=== PATIENT | female | born 1955 | race Caucasian/White ===

== ENCOUNTER → 2017-07-14 08:02 | Outpatient (CLI) | payer OTHER, SELFPAY ==
[2017-07-14 16:29] LABS: Basophil# 0.02 X10^3/uL; Basophil% 0.2 % (0-1); Eosinophil# 0.24 X10^3/uL; Eosinophils% 2.6 % (0-5); Hematocrit 38.7 % (37-47); Hemoglobin 12.5 g/dl (12.0-15.0); Mean Corp Hgb Conc 32.3 g/gl (32-36); Mean Corpuscular Hgb 30.7 pg (27.0-32.0); Mean Corpuscular Volume 95.1 fL (81-99); Mean Platelet Vol. 10.6 fl (6.2-12.0); Monocyte# 0.78 X10^3/uL; Monocyte% 8.6 % (0-10); Neutrophil # 6.03 X10^3/uL (2.7-7.7); Neutrophil % 66.4 % (47-70); POSITIVE COUNT NO; POSITIVE DIFFERENTIAL NO; POSITIVE MORPHOLOGY NO; Platelet Count 271 K/mm3 (150-450); RBC Distribution Width CV 13.1 % (11.6-14.6); RBC Distribution Width SD 44.8 fl (35.1-43.9); Red Blood Count 4.07 M/mm3 (4.2-5.4); White Blood Count 9.1 K/mm3 (4.4-11.0)
[2017-07-14 17:05] LABS: ALB/GLOB Ratio 0.9 RATIO (0.9-2.4); AST(SGOT) 30 U/L (15-37); Alanine Aminotransfer ALT/SGPT 50 U/L (13-56); Albumin, Serum 3.6 g/dL (3.2-5.0); Alkaline Phosphatase 140 U/L (45-117); Anion Gap 9 (5-15); BUN 23 mg/dL (7-18); BUN/Creat Ratio 26.9 RATIO (10-20); Calcium,Total 8.6 mg/dL (8.5-10.1); Chloride 101 mmol/L (98-107); Creatinine, Serum 0.86 mg/dL (0.55-1.02); EST Glomerular Filtration Rate 72 mL/min (>60); Est Glom Filt Rate - Afr Amer 87 mL/min (>60); Globulin 3.9 g/dL (2.2-4.2); Glucose 244 mg/dL (74-106); Protein, Total 7.5 g/dL (6.4-8.2); Sodium Level 138 mmol/L (136-145)
== END ==
PROVIDERS: Family Provider Family Medicine; PCP Family Medicine; Visit Provider Internal Medicine Rheumatology
DX: L40.59 Other psoriatic arthropathy (principal); Z79.899 Other long term (current) drug therapy; L40.8 Other psoriasis; K76.0 Fatty (change of) liver, not elsewhere classified; K21.9 Gastro-esophageal reflux disease without esophagitis
CPT/HCPCS: 36415; 80053; 85025

== ENCOUNTER → 2017-08-01 07:31 | Outpatient (CLI) | payer OTHER, SELFPAY ==
[2017-08-01 11:02] LABS: AST(SGOT) 36 U/L (15-37); Alanine Aminotransfer ALT/SGPT 50 U/L (13-56); Albumin, Serum 3.8 g/dL (3.2-5.0); Alkaline Phosphatase 127 U/L (45-117); Bilirubin, Direct 0.06 mg/dL (0.00-0.30); Cholesterol 155 mg/dL (200); Globulin 3.6 g/dL (2.2-4.2); High Density Lipoprotein 34 mg/dL; Protein, Total 7.4 g/dL (6.4-8.2); Triglycerides 545 mg/dL
== END ==
PROVIDERS: Family Provider Family Medicine; PCP Family Medicine; Visit Provider Nurse Practitioner Family
DX: E78.5 Hyperlipidemia, unspecified (principal); E78.1 Pure hyperglyceridemia; R00.0 Tachycardia, unspecified; E66.9 Obesity, unspecified; Z79.899 Other long term (current) drug therapy
CPT/HCPCS: 36415; 80061; 80076

== ENCOUNTER → 2017-10-01 15:00 | Outpatient (CLI) | payer OTHER, SELFPAY | PROVIDERS: Visit Provider Physician Assistant | DX: J02.9 Acute pharyngitis, unspecified (principal) | CPT/HCPCS: 87081 ==

== ENCOUNTER → 2017-10-11 07:25 | Outpatient (CLI) | payer OTHER, SELFPAY ==
[2017-10-11 09:59] LABS: Absolute Lymphocyte Count 1.52 X10^3/ul (0.83-4.51); Absolute Neutrophil Count 4.6 X10^3/uL (2.0-7.7); Basophil# 0.03 X10^3/uL; Basophil% 0.4 % (0-1); Eosinophil# 0.17 X10^3/uL; Eosinophils% 2.5 % (0-5); Hematocrit 39.4 % (37-47); Hemoglobin 12.7 g/dl (12.0-15.0); Lymphocyte # 1.52 X10^3/ul (4.0); Lymphocyte % 22.3 % (19-41); Mean Corp Hgb Conc 32.2 g/gl (32-36); Mean Corpuscular Hgb 30.2 pg (27.0-32.0); Mean Corpuscular Volume 93.8 fL (81-99); Mean Platelet Vol. 10.4 fl (6.2-12.0); Monocyte# 0.49 X10^3/uL; Monocyte% 7.2 % (0-10); Neutrophil % 67.5 % (47-70); Platelet Count 222 K/mm3 (150-450); RBC Distribution Width CV 13.8 % (11.6-14.6); RBC Distribution Width SD 46.5 fl (35.1-43.9); White Blood Count 6.8 K/mm3 (4.4-11.0)
[2017-10-11 10:11] LABS: POSITIVE COUNT NO; POSITIVE DIFFERENTIAL NO; POSITIVE MORPHOLOGY NO
[2017-10-11 10:27] LABS: ALB/GLOB Ratio 1.1 RATIO (0.9-2.4); AST(SGOT) 52 U/L (15-37); Alanine Aminotransfer ALT/SGPT 69 U/L (13-56); Albumin, Serum 3.8 g/dL (3.2-5.0); Alkaline Phosphatase 122 U/L (45-117); Anion Gap 6 (5-15); BUN 17 mg/dL (7-18); BUN/Creat Ratio 22.9 RATIO (10-20); Calcium,Total 9.2 mg/dL (8.5-10.1); Chloride 102 mmol/L (98-107); Creatinine, Serum 0.74 mg/dL (0.55-1.02); EST Glomerular Filtration Rate 85 mL/min (>60); Est Glom Filt Rate - Afr Amer 103 mL/min (>60); Globulin 3.6 g/dL (2.2-4.2); Glucose 138 mg/dL (74-106); Potassium 4.6 mmol/L (3.5-5.1); Protein, Total 7.4 g/dL (6.4-8.2); Sodium Level 139 mmol/L (136-145)
== END ==
PROVIDERS: Family Provider Family Medicine; PCP Family Medicine; Visit Provider Internal Medicine Rheumatology
DX: L40.59 Other psoriatic arthropathy (principal); K76.0 Fatty (change of) liver, not elsewhere classified; E11.9 Type 2 diabetes mellitus without complications; M21.40 Flat foot [pes planus] (acquired), unspecified foot; E78.5 Hyperlipidemia, unspecified; K21.9 Gastro-esophageal reflux disease without esophagitis; F32.89 Other specified depressive episodes; Z79.899 Other long term (current) drug therapy
CPT/HCPCS: 36415; 80053; 85025

== ENCOUNTER → 2017-11-02 09:42 | Outpatient (CLI) | payer OTHER, SELFPAY ==
[2017-11-02 12:27] LABS: ALB/GLOB Ratio 1.1 RATIO (0.9-2.4); AST(SGOT) 51 U/L (15-37); Alanine Aminotransfer ALT/SGPT 78 U/L (13-56); Albumin, Serum 3.8 g/dL (3.2-5.0); Alkaline Phosphatase 115 U/L (45-117); Anion Gap 12 (5-15); BUN 21 mg/dL (7-18); BUN/Creat Ratio 29.5 RATIO (10-20); Calcium,Total 8.9 mg/dL (8.5-10.1); Chloride 101 mmol/L (98-107); Creatinine, Serum 0.71 mg/dL (0.55-1.02); EST Glomerular Filtration Rate 89 mL/min (>60); Est Glom Filt Rate - Afr Amer 108 mL/min (>60); Globulin 3.6 g/dL (2.2-4.2); Glucose 177 mg/dL (74-106); Protein, Total 7.4 g/dL (6.4-8.2); Sodium Level 139 mmol/L (136-145)
== END ==
PROVIDERS: Family Provider Family Medicine; PCP Family Medicine; Visit Provider Internal Medicine Rheumatology
DX: L40.59 Other psoriatic arthropathy (principal); L40.8 Other psoriasis; K76.0 Fatty (change of) liver, not elsewhere classified; K21.9 Gastro-esophageal reflux disease without esophagitis; M21.40 Flat foot [pes planus] (acquired), unspecified foot; E11.9 Type 2 diabetes mellitus without complications; F32.89 Other specified depressive episodes; E78.5 Hyperlipidemia, unspecified; Z79.899 Other long term (current) drug therapy
CPT/HCPCS: 36415; 80053

== ENCOUNTER → 2017-11-27 07:38 | Outpatient (CLI) | payer OTHER, SELFPAY ==
[2017-11-27 09:57] LABS: Absolute Lymphocyte Count 1.49 X10^3/ul (0.83-4.51); Absolute Neutrophil Count 4.5 X10^3/uL (2.0-7.7); Basophil# 0.02 X10^3/uL; Basophil% 0.3 % (0-1); Hematocrit 38.8 % (37-47); Hemoglobin 13.4 g/dl (12.0-15.0); Lymphocyte # 1.49 X10^3/ul (4.0); Lymphocyte % 22.6 % (19-41); Mean Corp Hgb Conc 34.5 g/gl (32-36); Mean Corpuscular Hgb 32.4 pg (27.0-32.0); Mean Corpuscular Volume 93.9 fL (81-99); Mean Platelet Vol. 11.2 fl (6.2-12.0); Monocyte# 0.39 X10^3/uL; Monocyte% 5.9 % (0-10); Neutrophil # 4.47 X10^3/uL (2.7-7.7); POSITIVE COUNT NO; POSITIVE DIFFERENTIAL NO; POSITIVE MORPHOLOGY NO; Platelet Count 188 K/mm3 (150-450); RBC Distribution Width CV 13.4 % (11.6-14.6); RBC Distribution Width SD 45.6 fl (35.1-43.9); Red Blood Count 4.13 M/mm3 (4.2-5.4); White Blood Count 6.6 K/mm3 (4.4-11.0)
[2017-11-27 11:17] LABS: Albumin, Serum 3.6 g/dL (3.2-5.0); Alkaline Phosphatase 111 U/L (45-117); Anion Gap 24 (5-15); BUN 13 mg/dL (7-18); BUN/Creat Ratio 17.5 RATIO (10-20); Bilirubin, Direct < 0.05 mg/dL (0.00-0.30); Calcium,Total 8.1 mg/dL (8.5-10.1); Chloride 97 mmol/L (98-107); Creatinine, Serum 0.74 mg/dL (0.55-1.02); EST Glomerular Filtration Rate 84 mL/min (>60); Est Glom Filt Rate - Afr Amer 102 mL/min (>60); Globulin 3.6 g/dL (2.2-4.2); Glucose 242 mg/dL (74-106); Potassium 3.9 mmol/L (3.5-5.1); Protein, Total 7.2 g/dL (6.4-8.2); Sodium Level 135 mmol/L (136-145)
[2017-11-27 11:31] LABS: AST(SGOT) 76 U/L (15-37); Alanine Aminotransfer ALT/SGPT 63 U/L (13-56)
== END ==
PROVIDERS: Family Provider Family Medicine; PCP Family Medicine; Visit Provider Internal Medicine Cardiovascular Disease
DX: L40.59 Other psoriatic arthropathy (principal); K76.0 Fatty (change of) liver, not elsewhere classified; M21.40 Flat foot [pes planus] (acquired), unspecified foot; E11.9 Type 2 diabetes mellitus without complications; E78.5 Hyperlipidemia, unspecified; K21.9 Gastro-esophageal reflux disease without esophagitis; F32.89 Other specified depressive episodes; Z79.899 Other long term (current) drug therapy
CPT/HCPCS: 80048; 80076; 85025

== ENCOUNTER → 2017-12-23 08:47 | Outpatient (CLI) | payer OTHER, SELFPAY ==
[2017-12-23 09:38] LABS: Absolute Lymphocyte Count 1.79 X10^3/ul (0.83-4.51); Basophil# 0.04 X10^3/uL; Basophil% 0.5 % (0-1); Eosinophil# 0.14 X10^3/uL; Eosinophils% 1.9 % (0-5); Hematocrit 41.7 % (37-47); Hemoglobin 13.4 g/dl (12.0-15.0); Lymphocyte # 1.79 X10^3/ul (4.0); Lymphocyte % 24.4 % (19-41); Mean Corp Hgb Conc 32.1 g/gl (32-36); Mean Corpuscular Hgb 30.2 pg (27.0-32.0); Mean Corpuscular Volume 94.1 fL (81-99); Mean Platelet Vol. 11.9 fl (6.2-12.0); Monocyte# 0.39 X10^3/uL; Monocyte% 5.3 % (0-10); Neutrophil # 4.98 X10^3/uL (2.7-7.7); Neutrophil % 67.8 % (47-70); Platelet Count 182 K/mm3 (150-450); RBC Distribution Width SD 44.7 fl (35.1-43.9); Red Blood Count 4.43 M/mm3 (4.2-5.4); White Blood Count 7.4 K/mm3 (4.4-11.0)
[2017-12-23 09:43] LABS: POSITIVE COUNT NO; POSITIVE DIFFERENTIAL NO; POSITIVE MORPHOLOGY NO
[2017-12-23 10:12] LABS: ALB/GLOB Ratio 0.9 RATIO (0.9-2.4); AST(SGOT) 68 U/L (15-37); Alanine Aminotransfer ALT/SGPT 73 U/L (13-56); Albumin, Serum 3.6 g/dL (3.2-5.0); Alkaline Phosphatase 120 U/L (45-117); Anion Gap 11 (5-15); BUN 19 mg/dL (7-18); BUN/Creat Ratio 24.4 RATIO (10-20); Calcium,Total 8.7 mg/dL (8.5-10.1); Chloride 100 mmol/L (98-107); Creatinine, Serum 0.78 mg/dL (0.55-1.02); EST Glomerular Filtration Rate 80 mL/min (>60); Est Glom Filt Rate - Afr Amer 97 mL/min (>60); Glucose 210 mg/dL (74-106); Potassium 4.5 mmol/L (3.5-5.1); Protein, Total 7.6 g/dL (6.4-8.2); Sodium Level 138 mmol/L (136-145)
== END ==
PROVIDERS: Family Provider Family Medicine; PCP Family Medicine; Visit Provider Internal Medicine Rheumatology
DX: L40.59 Other psoriatic arthropathy (principal); K76.0 Fatty (change of) liver, not elsewhere classified; M21.40 Flat foot [pes planus] (acquired), unspecified foot; E11.9 Type 2 diabetes mellitus without complications; E78.5 Hyperlipidemia, unspecified; K21.9 Gastro-esophageal reflux disease without esophagitis; F32.89 Other specified depressive episodes; Z79.899 Other long term (current) drug therapy
CPT/HCPCS: 36415; 80053; 85025

== ENCOUNTER → 2018-01-05 07:34 | Outpatient (CLI) | payer OTHER, SELFPAY ==
--- NOTE | 2018-01-05 06:58 | BI_ITS ---
MAMMOGRAPHY - BILATERAL SCREENING REASON FOR EXAM: Female, 62 years old. Routine annual screening examination. PERTINENT HISTORY: Non-contributory. TECHNIQUE: Digital bilateral breast lizzy (3D mammographic acquisition) in the CC and MLO projections. 2-D mediolateral oblique (MLO) and craniocaudad (CC) views of both breasts were obtained. CAD: Full Field Digital Mammography with Computer Added Detection was performed. COMPARISON: Comparison is made with prior examination dated December 28, 2016 and October 05, 2015. FINDINGS: Breast Composition: There are scattered areas of fibroglandular density. There are no dominant masses or suspicious calcifications. A tissue clip marker is once again seen in the deep mid slightly lateral aspect of the right breast stable appearance of the benign bilateral axillary lymph nodes. No other significant abnormalities are identified. There has been no significant change since the prior study. BI/SCREENING MAMM (CAD), BILAT IMPRESSION: Stable bilateral screening mammogram. Yearly follow-up mammogram recommended. (A) ASSESSMENT CATEGORY: BIRADS Category 1: Negative. A letter regarding these results will be sent to the patient by the facility within 30 days. Approximately 10% of breast cancers are not detected by mammography. A normal mammogram should not delay biopsy of a clinically suspicious abnormality. [id number] Electronically Signed: Pawan Leong MD at 8:32 EDT Tel [phone], Service support ,
== END ==
PROVIDERS: Family Provider Family Medicine; PCP Family Medicine; Visit Provider Family Medicine
DX: Z12.31 Encounter for screening mammogram for malignant neoplasm of breast (principal)
CPT/HCPCS: 77063; 77067

== ENCOUNTER 2018-01-15 15:41 | Outpatient (RCR) | payer OTHER, SELFPAY | END 2018-02-02 23:59 | LOC: NS 15:41 | PROVIDERS: Family Provider Family Medicine; PCP Family Medicine; Visit Provider Family Medicine | DX: E66.9 Obesity, unspecified (principal); Z68.33 Body mass index [BMI] 33.0-33.9, adult; Z71.3 Dietary counseling and surveillance | CPT/HCPCS: 97802 ==

== ENCOUNTER → 2018-01-23 07:59 | Outpatient (CLI) | payer OTHER, SELFPAY ==
[2018-01-23 10:27] LABS: AST(SGOT) 55 U/L (15-37); Alanine Aminotransfer ALT/SGPT 71 U/L (13-56); Albumin, Serum 3.8 g/dL (3.2-5.0); Alkaline Phosphatase 117 U/L (45-117); Anion Gap 5 (5-15); BUN 17 mg/dL (7-18); BUN/Creat Ratio 22.9 RATIO (10-20); Calcium,Total 8.6 mg/dL (8.5-10.1); Chloride 105 mmol/L (98-107); Creatinine, Serum 0.74 mg/dL (0.55-1.02); EST Glomerular Filtration Rate 85 mL/min (>60); Est Glom Filt Rate - Afr Amer 103 mL/min (>60); Globulin 3.7 g/dL (2.2-4.2); Glucose 156 mg/dL (74-106); Potassium 4.2 mmol/L (3.5-5.1); Protein, Total 7.5 g/dL (6.4-8.2); Sodium Level 140 mmol/L (136-145)
== END ==
PROVIDERS: Internal Medicine Cardiovascular Disease; Family Provider Family Medicine; PCP Family Medicine; Visit Provider Internal Medicine Rheumatology
DX: L40.59 Other psoriatic arthropathy (principal); Z79.899 Other long term (current) drug therapy
CPT/HCPCS: 36415; 80053; 82248

== ENCOUNTER → 2018-01-30 08:05 | Outpatient (CLI) | payer OTHER, SELFPAY | PROVIDERS: Family Provider Family Medicine; PCP Family Medicine; Visit Provider Internal Medicine Rheumatology | DX: L40.59 Other psoriatic arthropathy (principal); K76.0 Fatty (change of) liver, not elsewhere classified; M21.40 Flat foot [pes planus] (acquired), unspecified foot; E11.9 Type 2 diabetes mellitus without complications; E78.5 Hyperlipidemia, unspecified; K21.9 Gastro-esophageal reflux disease without esophagitis; F32.89 Other specified depressive episodes; Z79.899 Other long term (current) drug therapy | CPT/HCPCS: 76705 ==

== ENCOUNTER → 2018-02-06 08:09 | Outpatient (CLI) | payer OTHER, SELFPAY ==
[2018-02-06 14:37] LABS: ALB/GLOB Ratio 1.1 RATIO (0.9-2.4); AST(SGOT) 61 U/L (15-37); Alanine Aminotransfer ALT/SGPT 77 U/L (13-56); Albumin, Serum 4.1 g/dL (3.2-5.0); Alkaline Phosphatase 129 U/L (45-117); Anion Gap 11 (5-15); BUN 15 mg/dL (7-18); BUN/Creat Ratio 18.1 RATIO (10-20); Calcium,Total 9.7 mg/dL (8.5-10.1); Chloride 100 mmol/L (98-107); Creatinine, Serum 0.83 mg/dL (0.55-1.02); EST Glomerular Filtration Rate 74 mL/min (>60); Est Glom Filt Rate - Afr Amer 90 mL/min (>60); Globulin 3.9 g/dL (2.2-4.2); Glucose 119 mg/dL (74-106); Potassium 4.3 mmol/L (3.5-5.1); Sodium Level 140 mmol/L (136-145)
[2018-02-12 03:06] LABS: QNTFERON TB Ag Minus Nil Value 0.01 IU/mL (.); QNTFERON TB Ag Value 0.02 IU/mL (.); QNTFERON TB Mitogen Value > 10.00 IU/mL (.); QNTFERON TB Nil Value 0.01 IU/mL (.)
[2018-02-14 11:12] LABS: QNTIFERON TB Gold Negative (Negative)
== END ==
PROVIDERS: Family Provider Family Medicine; PCP Family Medicine; Visit Provider Internal Medicine Rheumatology
DX: L40.59 Other psoriatic arthropathy (principal); K76.0 Fatty (change of) liver, not elsewhere classified; M21.40 Flat foot [pes planus] (acquired), unspecified foot; E11.9 Type 2 diabetes mellitus without complications; E78.5 Hyperlipidemia, unspecified; K21.9 Gastro-esophageal reflux disease without esophagitis; F32.89 Other specified depressive episodes; Z79.899 Other long term (current) drug therapy
CPT/HCPCS: 36415; 80053; 86480

== ENCOUNTER → 2018-02-09 08:09 | Outpatient (CLI) | payer OTHER, SELFPAY ==
[2018-02-16 03:07] LABS: QNTFERON TB Ag Minus Nil Value 0 IU/mL (.); QNTFERON TB Ag Value 0.05 IU/mL (.); QNTFERON TB Mitogen Value > 10.00 IU/mL (.); QNTFERON TB Nil Value 0.05 IU/mL (.)
[2018-02-16 08:58] LABS: QNTIFERON TB Gold Negative (Negative)
== END ==
PROVIDERS: Family Provider Family Medicine; PCP Family Medicine; Visit Provider Internal Medicine Rheumatology
DX: L40.59 Other psoriatic arthropathy (principal); K76.0 Fatty (change of) liver, not elsewhere classified; M21.40 Flat foot [pes planus] (acquired), unspecified foot; E11.9 Type 2 diabetes mellitus without complications; E78.5 Hyperlipidemia, unspecified; K21.9 Gastro-esophageal reflux disease without esophagitis; F32.89 Other specified depressive episodes; Z79.899 Other long term (current) drug therapy
CPT/HCPCS: 36415; 71046; 86480

== ENCOUNTER → 2018-02-17 10:08 | Outpatient (CLI) | payer OTHER, SELFPAY ==
[2018-02-17 11:43] LABS: Cholesterol 178 mg/dL (200); High Density Lipoprotein 42 mg/dL; Triglycerides 313 mg/dL; Very Low Density Lipoprotein 63 mg/dL (5-40)
== END ==
PROVIDERS: Family Provider Family Medicine; PCP Family Medicine; Visit Provider Internal Medicine Cardiovascular Disease
DX: E78.5 Hyperlipidemia, unspecified (principal); Z79.899 Other long term (current) drug therapy
CPT/HCPCS: 36415; 80061

== ENCOUNTER 2018-02-23 09:28 | Outpatient (RCR) | payer OTHER, SELFPAY | END 2018-03-04 23:59 | LOC: NS 09:28 | PROVIDERS: Family Provider Family Medicine; PCP Family Medicine; Visit Provider Family Medicine | DX: E66.9 Obesity, unspecified (principal); Z68.33 Body mass index [BMI] 33.0-33.9, adult; Z71.3 Dietary counseling and surveillance ==

== ENCOUNTER → 2018-02-23 23:36 | Outpatient (CLI) | payer OTHER, SELFPAY | PROVIDERS: Family Provider Family Medicine; PCP Family Medicine; Visit Provider Clinical Nurse Specialist Acute Care | DX: G47.10 Hypersomnia, unspecified (principal) | CPT/HCPCS: 95810 ==

== ENCOUNTER → 2018-03-27 21:22 | Outpatient (CLI) | payer OTHER, SELFPAY | PROVIDERS: Family Provider Family Medicine; PCP Family Medicine; Visit Provider Clinical Nurse Specialist Acute Care | DX: G47.33 Obstructive sleep apnea (adult) (pediatric) (principal) | CPT/HCPCS: 95811 ==

== ENCOUNTER 2018-05-03 08:00 | Outpatient (RCR) | payer OTHER, SELFPAY | END 2018-05-04 23:59 | LOC: NS 08:00 | PROVIDERS: Family Provider Family Medicine; PCP Family Medicine; Visit Provider Family Medicine | DX: E66.9 Obesity, unspecified (principal); E11.9 Type 2 diabetes mellitus without complications; Z68.33 Body mass index [BMI] 33.0-33.9, adult; Z71.3 Dietary counseling and surveillance | CPT/HCPCS: 97803 ==

== ENCOUNTER 2018-05-24 09:00 | Outpatient (RCR) | payer OTHER, SELFPAY ==
[2018-03-29 08:55] VITALS: BMI 34.2
== END 2018-06-04 23:59 ==
LOC: NS 09:00
PROVIDERS: Family Provider Family Medicine; PCP Family Medicine; Visit Provider Family Medicine
DX: E66.9 Obesity, unspecified (principal); E11.9 Type 2 diabetes mellitus without complications; Z68.33 Body mass index [BMI] 33.0-33.9, adult; Z71.3 Dietary counseling and surveillance
CPT/HCPCS: 97803

== ENCOUNTER → 2018-06-07 09:25 | Outpatient (CLI) | payer OTHER, SELFPAY ==
[2018-03-29 08:55] VITALS: BMI 34.2
[2018-06-07 12:16] LABS: Absolute Lymphocyte Count 1.51 X10^3/ul (0.83-4.51); Absolute Neutrophil Count 2.8 X10^3/uL (2.0-7.7); Basophil# 0.04 X10^3/uL; Basophil% 0.8 % (0-1); Eosinophil# 0.09 X10^3/uL; Eosinophils% 1.9 % (0-5); Hematocrit 42.4 % (37-47); Hemoglobin 13.7 g/dl (12.0-15.0); Lymphocyte # 1.51 X10^3/ul (4.0); Lymphocyte % 31.4 % (19-41); Mean Corp Hgb Conc 32.3 g/gl (32-36); Mean Corpuscular Hgb 29.8 pg (27.0-32.0); Mean Corpuscular Volume 92.2 fL (81-99); Monocyte% 8.3 % (0-10); Neutrophil # 2.76 X10^3/uL (2.7-7.7); Neutrophil % 57.4 % (47-70); Platelet Count 182 K/mm3 (150-450); RBC Distribution Width CV 12.7 % (11.6-14.6); RBC Distribution Width SD 42.3 fl (35.1-43.9); White Blood Count 4.8 K/mm3 (4.4-11.0)
[2018-06-07 12:22] LABS: ALB/GLOB Ratio 1.1 RATIO (0.9-2.4); AST(SGOT) 68 U/L (15-37); Alanine Aminotransfer ALT/SGPT 150 U/L (13-56); Albumin, Serum 3.8 g/dL (3.2-5.0); Alkaline Phosphatase 112 U/L (45-117); Anion Gap 9 (5-15); BUN 14 mg/dL (7-18); Calcium,Total 8.9 mg/dL (8.5-10.1); Chloride 103 mmol/L (98-107); Creatinine, Serum 0.74 mg/dL (0.55-1.02); EST Glomerular Filtration Rate 85 mL/min (>60); Est Glom Filt Rate - Afr Amer 103 mL/min (>60); Globulin 3.6 g/dL (2.2-4.2); Glucose 166 mg/dL (74-106); Potassium 3.9 mmol/L (3.5-5.1); Protein, Total 7.4 g/dL (6.4-8.2); Sodium Level 142 mmol/L (136-145)
[2018-06-07 12:23] LABS: POSITIVE COUNT NO; POSITIVE DIFFERENTIAL NO; POSITIVE MORPHOLOGY NO
== END ==
PROVIDERS: Family Provider Family Medicine; PCP Family Medicine; Referring Provider Internal Medicine Rheumatology; Visit Provider Internal Medicine Rheumatology
DX: L40.59 Other psoriatic arthropathy (principal); K76.0 Fatty (change of) liver, not elsewhere classified; M21.40 Flat foot [pes planus] (acquired), unspecified foot; E11.9 Type 2 diabetes mellitus without complications; E78.5 Hyperlipidemia, unspecified; K21.9 Gastro-esophageal reflux disease without esophagitis; F32.89 Other specified depressive episodes; Z79.899 Other long term (current) drug therapy
CPT/HCPCS: 36415; 80053; 85025

== ENCOUNTER 2018-07-02 10:07 | Outpatient (RCR) | payer OTHER, SELFPAY ==
[2018-03-29 08:55] VITALS: BMI 34.2
== END 2018-07-05 23:59 ==
LOC: NS 10:07
PROVIDERS: Family Provider Family Medicine; PCP Family Medicine; Visit Provider Family Medicine
DX: E66.9 Obesity, unspecified (principal); E11.9 Type 2 diabetes mellitus without complications; Z68.33 Body mass index [BMI] 33.0-33.9, adult; Z71.3 Dietary counseling and surveillance
CPT/HCPCS: 97803

== ENCOUNTER → 2018-07-02 12:07 | Outpatient (CLI) | payer OTHER, SELFPAY ==
[2018-03-29 08:55] VITALS: BMI 34.2
--- NOTE | 2018-07-02 12:11 | RAD_ITS ---
STUDY: X-RAY CHEST REASON FOR EXAM: Female, 63 years old. Cough TECHNIQUE: Frontal and lateral views of the chest. COMPARISON: 02/09/2018 FINDINGS: The lungs are clear and expanded. There is no demonstrated pleural abnormality. Normal size heart. Normal mediastinum and krysten. Normal visualized pulmonary arteries. Normal visualized aortic arch and descending thoracic aorta. Normal visualized thoracic spine. Normal visualized ribs, clavicles, and shoulders. There is no demonstrated abnormality of the visualized soft tissue structures of the upper abdomen. RAD/Chest PA and Lateral IMPRESSION: Normal x-ray examination of the chest. Electronically Signed: Jeferson Valadez MD at 13:10 EST Tel , Service support ,
== END ==
PROVIDERS: Family Provider Family Medicine; PCP Family Medicine; Referring Provider Family Medicine; Visit Provider Family Medicine
DX: R05 Cough (principal)
CPT/HCPCS: 71046

== ENCOUNTER 2018-07-30 10:00 | Outpatient (RCR) | payer OTHER, SELFPAY ==
[2018-03-29 08:55] VITALS: BMI 34.2
== END 2018-08-02 23:59 ==
LOC: NS 10:00
PROVIDERS: Family Provider Family Medicine; PCP Family Medicine; Visit Provider Family Medicine
DX: E66.9 Obesity, unspecified (principal); E11.9 Type 2 diabetes mellitus without complications; Z68.33 Body mass index [BMI] 33.0-33.9, adult; Z71.3 Dietary counseling and surveillance
CPT/HCPCS: 97803

== ENCOUNTER 2018-09-12 09:04 | Outpatient (RCR) | payer OTHER, SELFPAY ==
[2018-03-29 08:55] VITALS: BMI 34.2
== END 2018-10-02 23:59 ==
LOC: NS 09:04
PROVIDERS: Family Provider Family Medicine; PCP Family Medicine; Visit Provider Family Medicine
DX: E66.9 Obesity, unspecified (principal); E11.9 Type 2 diabetes mellitus without complications; Z68.33 Body mass index [BMI] 33.0-33.9, adult; Z71.3 Dietary counseling and surveillance
CPT/HCPCS: 97803

== ENCOUNTER → 2018-09-12 09:31 | Outpatient (CLI) | payer OTHER, SELFPAY ==
[2018-09-12 11:31] LABS: AST(SGOT) 104 U/L (15-37); Alanine Aminotransfer ALT/SGPT 110 U/L (13-56); Albumin, Serum 3.9 g/dL (3.2-5.0); Alkaline Phosphatase 114 U/L (45-117); Bilirubin, Direct 0.07 mg/dL (0.00-0.30); Cholesterol 169 mg/dL (200); High Density Lipoprotein 33 mg/dL; Protein, Total 7.9 g/dL (6.4-8.2); Triglycerides 354 mg/dL; Very Low Density Lipoprotein 71 mg/dL (5-40)
== END ==
PROVIDERS: Family Provider Family Medicine; PCP Family Medicine; Referring Provider Internal Medicine Cardiovascular Disease; Visit Provider Internal Medicine Cardiovascular Disease
DX: E78.5 Hyperlipidemia, unspecified (principal)
CPT/HCPCS: 36415; 80061; 80076

== ENCOUNTER → 2018-11-20 08:05 | Outpatient (CLI) | payer OTHER, SELFPAY ==
[2018-03-29 08:55] VITALS: BMI 34.2
[2018-11-20 10:51] LABS: Absolute Lymphocyte Count 1.72 X10^3/ul (0.83-4.51); Absolute Neutrophil Count 3.4 X10^3/uL (2.0-7.7); Basophil# 0.04 X10^3/uL; Basophil% 0.7 % (0-1); Hematocrit 41.5 % (37-47); Hemoglobin 13.4 g/dl (12.0-15.0); Lymphocyte # 1.72 X10^3/ul (4.0); Lymphocyte % 28.9 % (19-41); Mean Corp Hgb Conc 32.3 g/gl (32-36); Mean Corpuscular Hgb 29.6 pg (27.0-32.0); Mean Corpuscular Volume 91.6 fL (81-99); Mean Platelet Vol. 11.4 fl (6.2-12.0); Monocyte# 0.52 X10^3/uL; Monocyte% 8.7 % (0-10); Neutrophil # 3.37 X10^3/uL (2.7-7.7); Neutrophil % 56.5 % (47-70); Platelet Count 161 K/mm3 (150-450); RBC Distribution Width CV 12.8 % (11.6-14.6); RBC Distribution Width SD 41.9 fl (35.1-43.9); Red Blood Count 4.53 M/mm3 (4.2-5.4)
[2018-11-20 10:55] LABS: POSITIVE COUNT NO; POSITIVE DIFFERENTIAL NO; POSITIVE MORPHOLOGY NO
[2018-11-20 11:09] LABS: AST(SGOT) 77 U/L (15-37); Alanine Aminotransfer ALT/SGPT 108 U/L (13-56); Albumin, Serum 3.7 g/dL (3.2-5.0); Alkaline Phosphatase 111 U/L (45-117); Bilirubin, Direct 0.05 mg/dL (0.00-0.30); Cholesterol 193 mg/dL (200); Globulin 3.9 g/dL (2.2-4.2); High Density Lipoprotein 39 mg/dL; Protein, Total 7.6 g/dL (6.4-8.2); Triglycerides 201 mg/dL; Very Low Density Lipoprotein 40 mg/dL (5-40)
[2018-11-20 11:14] LABS: ALB/GLOB Ratio 0.9 RATIO (0.9-2.4); AST(SGOT) 78 U/L (15-37); Alanine Aminotransfer ALT/SGPT 110 U/L (13-56); Albumin, Serum 3.6 g/dL (3.2-5.0); Alkaline Phosphatase 115 U/L (45-117); Anion Gap 9 (5-15); BUN 15 mg/dL (7-18); BUN/Creat Ratio 21.3 RATIO (10-20); Calcium,Total 8.8 mg/dL (8.5-10.1); Chloride 103 mmol/L (98-107); EST Glomerular Filtration Rate 90 mL/min (>60); Est Glom Filt Rate - Afr Amer 108 mL/min (>60); Globulin 4.1 g/dL (2.2-4.2); Glucose 134 mg/dL (74-106); Potassium 4.1 mmol/L (3.5-5.1); Protein, Total 7.7 g/dL (6.4-8.2); Sodium Level 139 mmol/L (136-145)
== END ==
PROVIDERS: Internal Medicine Cardiovascular Disease; Family Provider Family Medicine; PCP Family Medicine; Referring Provider Internal Medicine Rheumatology; Visit Provider Internal Medicine Rheumatology
DX: L40.59 Other psoriatic arthropathy (principal); K76.0 Fatty (change of) liver, not elsewhere classified; M21.40 Flat foot [pes planus] (acquired), unspecified foot; E11.9 Type 2 diabetes mellitus without complications; E78.5 Hyperlipidemia, unspecified; K21.9 Gastro-esophageal reflux disease without esophagitis; F32.89 Other specified depressive episodes; Z79.899 Other long term (current) drug therapy
CPT/HCPCS: 36415; 80053; 80061; 80076; 85025

== ENCOUNTER → 2019-04-04 06:55 | Outpatient (CLI) | payer OTHER, SELFPAY ==
--- NOTE | 2019-04-04 06:57 | BI_ITS ---
MAMMOGRAPHY - BILATERAL SCREENING REASON FOR EXAM: Female, 63 years old. Routine annual screening examination. PERTINENT HISTORY: Non-contributory. TECHNIQUE: Digital bilateral breast flakito (3D mammographic acquisition) in the CC and MLO projections. 2-D mediolateral oblique (MLO) and craniocaudad (CC) views of both breasts were obtained. CAD: Full Field Digital Mammography with Computer Added Detection was performed. COMPARISON: Comparison is made with prior study dated January 05, 2018 and December 28, 2016. FINDINGS: Breast Composition: There are scattered areas of fibroglandular density. There are no dominant masses or suspicious calcifications. A tissue clip marker is once again seen in deep mid slightly lateral aspect of the right breast in keeping with prior biopsy. Stable appearance of the small benign-appearing bilateral axillary lymph nodes. No other significant abnormalities are identified. There has been no significant change since the prior study. BI/SCREEN MAMM (CAD) W/FLAKITO BILAT IMPRESSION: Stable bilateral screening mammogram. Yearly follow-up mammogram recommended. (A) ASSESSMENT CATEGORY: BIRADS Category 2: Benign. A letter regarding these results will be sent to the patient by the facility within 30 days. Approximately 10% of breast cancers are not detected by mammography. A normal mammogram should not delay biopsy of a clinically suspicious abnormality. [id number] Electronically Signed: Pawan Leong, at 9:01 EDT , Service support ,
== END ==
PROVIDERS: Family Provider Family Medicine; PCP Family Medicine; Referring Provider Family Medicine; Visit Provider Family Medicine
DX: Z12.31 Encounter for screening mammogram for malignant neoplasm of breast (principal)
CPT/HCPCS: 77063; 77067

== ENCOUNTER 2019-04-17 18:00 | Outpatient (RCR) | payer OTHER, SELFPAY ==
--- NOTE | 2019-02-27 10:45 | HP.PTEVAL ---
Patient's Visit Information ALLEGRA LOWE is a 63 year old F referred to Physical Therapy by Elissa Alanis MD with a diagnosis of Gait Instability and repeated falls. Date of Evaluation: 02/27/19 Physical Therapist: BRIA Root - Visit Plan Frequency: 2x /Week Duration: 6 Weeks Plan: 2X/ week for 4-6 weeks for functional balance activities such as turning directions, curb steps, walking with head turns, compliant surfaces with HEP. TEST ON NEUROCOM as soon as avaiable and treat deficitis. - Subjective Findings: Pt reports that she has fallen 4X in the last 6 weeks. The first time she fell she went to walk around a car and she thinks that she stepped on the edge of the sidewalk and rolled her ankle. The second time she fell she was walking down the street in [place] and thre was a sunken piece of pavement and she hooked her foot and fell. The third time she fellShe walked out onto patio and bumped the side of her leg and the next things she knew she was on the ground. The 4th time she fell she was reaching above her head taking things out of the trees and the next thing she knew, she was on the ground. She reports that she gets a weird feeling when she is down low or reaching above her head and can not say its dizziness. 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 She walks 12 hours at work a day 5 days a week. She wears good tennis shoes. When she bangs into things it is hard, she does not pick her feet up like she should. Couple of days ago working in flower beds and wants to fall forward. She has not had any nerve conduction testing. She has DM II for 5 years and she says that it is controlled. She has no N&T in her feet. 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 Was waling 2.5 miles in an hour but feet hurt. Walking varies based upon the day. She tries to walk at least 3X/ week. - Pain B achilles pain Pain Intensity (Out of 10): 6 Pain Intensity Range: 10 B knee pain Pain Intensity (Out of 10): 3 - Objective Gait: WBOS with slightly decreased stride length. Pt is able to walk on heels and toes without UE support. Sit to stand: Able to stand without using UE but has a little unsteadiness when first stands. LE MMT: B hip flex 4/5, B hip abd 4/5, B knee ext 4+/5, B knee flex 4+/5. gastroc flexibility: Slightly tight B. FGA: 19. CATSIB: 95 - Balance Scores Functional Gait Assessment Score: 19 % Disability: 36.6700 CATSIB Score (Max score 120 seconds): 95 - Goals Goal 1:: I HEP Goal Time Frame: 4-6 Weeks Goal 2:: Increase CATSIB by 15 points to decrease fall risk ( at time of eval score was 95) Goal Time Frame: 4-6 Weeks Goal 3:: Be able to walk with more of a normal gait pattern with feet closer together Goal Time Frame: 4-6 Weeks Goal 4:: Decrease falls over the next 6 weeks to none Goal Time Frame: 4-6 Weeks - Rehabilitation Potential Rehabilitation Potential: Good - Anticipated Interventions Patient/Client Instruction: Educate patient on: Condition, Plan of Care For the Purpose of:: To improve muscle performance and motor function, To improve ability to perform ADL's, To increase tolerance to activity/condition/position, To improve performance and independence with ADL's, To improve ability of physical actions for home/community/work/leisure, To improve gait and locomotor functions, To improve endurance, To improve balance, To improve safety with gait Therapeutic Exercise to Include: Strength training, Balance training, Coordination, Postural training, Gait and locomotor training For the Purpose of:: To improve muscle performance and motor function, To improve ability to perform ADL's, To increase tolerance to activity/condition/position, To improve performance and independence with ADL's, To decrease level of supervision to perform tasks, To improve ability of physical actions for home/community/work/leisure, To improve gait and locomotor functions, To increase flexibility/ROM, To improve endurance, To improve balance, To improve safety with gait Functional Training to Include: Gait training For the Purpose of:: To improve gait and locomotor functions, To improve safety with gait Thank you for the opportunity to evaluate your patient. For Medicare and Medicare HMO plans, please review the plan of care and approve it. It will need to be FAXED BACK to us at [phone] for Medicare purposes. For Medicare only, by signing this I certify the plan of care. Please let me know if there are questions or concerns regarding this plan of care. Physician Signature: Date:
--- NOTE | 2019-03-13 11:54 | HP.PTCOM_ITS ---
PT Communication Note 03/13/[address] Elissa Alanis MD , Thank you for the referral of Jazmyne Pedraza to our clinic with diagnosis of gait instability and frequent falls. She was tested on our [employer] today and enclosed are the patients test results. On the Sensory Organization Test (SOT) she had a decreased overall composite sco re compared to norms for her age group. She had decreased input from her vestibular system to help her maintain her balance. Her strategy analysis was between hip and ankle dominant but pt has a h/o of chronic ankle pain. Her center of gravity alignment was more to the left and forward. The results of the Motor Control Test (MCT) showed that the patient has decreased overall reaction time. On the Limits of Stability Test (LOS) she had trouble with weight shifting backwards. At this point in time we will continue to see her to work on vestibular inputs, weight shifting backwards, center of gravity alignment along with functional activities such as walking with head turns, curb steps, quick turns with HEP Sincerely, BRIA Root Contact Information
--- NOTE | 2019-04-03 11:22 | HP.PTREVAL_ITS ---
Elissa Alanis MD, It has been my pleasure to treat ALLEGRA LOWE over the last 8 visits for Gait Instability and repeated falls. Please see the progress note below for an update on the physical therapy plan of care! Subjective: Pt reports that she thinks that she is not getting as dizzy.. There are times when she is dizzy but not as much. She is definitly better on román foam with EO and EC. SHe is istill more timid backing up and does not have a lot of time to practice those. SHe is going to 5 8 hour days instead of 12's. She thinks that she has gotten better stepping over things. No falls since the start of PT. Objective/Function: CATSIB 120/120. Gait: occ stepping out to the R but overall feet are closer together and smaller BRANDEN than the initial eval. Amb BW for 32 feet X 1 with slower tracy but overall controlled with no LOB Plan Plan: Pt to do HEP for 2 weeks and then come back for a re-check to make sure she is ok with HEP, not regressing, and no falls within 6 weeks time period. Goals Goal 1:: I HEP Goal Time Frame: 4-6 Weeks Goal Progress: Goal Met Goal 2:: Increase CATSIB by 15 points to decrease fall risk ( at time of eval score was 95) Goal Time Frame: 4-6 Weeks Goal Progress: Goal Met Goal 3:: Be able to walk with more of a normal gait pattern with feet closer together Goal Time Frame: 4-6 Weeks Goal Progress: Goal Met Goal 4:: Decrease falls over the next 6 weeks to none Goal Time Frame: 4-6 Weeks Goal Progress: Progressing Anticipated Interventions Patient/Client Instruction: Educate patient on: Condition, Plan of Care For the Purpose of:: To improve muscle performance and motor function, To improve ability to perform ADL's, To increase tolerance to a ctivity/condition/position, To improve performance and independence with ADL's, To improve ability of physical actions for home/community/work/leisure, To improve gait and locomotor functions, To improve endurance, To improve balance, To improve safety with gait Therapeutic Exercise to Include: Strength training, Balance training, Coordination, Postural training, Gait and locomotor training For the Purpose of:: To improve muscle performance and motor function, To improve ability to perform ADL's, To increase tolerance to activity/condition/position, To improve performance and independence with ADL's, To decrease level of supervision to perform tasks, To improve ability of physical actions for home/community/work/leisure, To improve gait and locomotor functions, To increase flexibility/ROM, To improve endurance, To improve balance, To improve safety with gait Functional Training to Include: Gait training For the Purpose of:: To improve gait and locomotor functions, To improve safety with gait Please do not hesitate to contact me at [phone] by phone or if you have questions or concerns regarding this new plan of care! Sincerely, Ana Horvath, MPT
--- NOTE | 2019-04-17 18:21 | HP.PTDCSUM ---
HP - PT D/C Summary It has been my pleasure to treat ALLEGRA LOWE under orders from Elissa Alanis MD, for the diagnosis of Gait Instability and repeated falls for a total of 9 visit(s). Discharge Date: 04/17/19 Please see the following information for a summary of their discharge status. - Subjective Subjective: No falls. I feel so good. Im ready to just keep doing exercises at home. PT reports that she is not hesitant any longer - Pain B achilles pain Pain Intensity (Out of 10): 5 B knee pain Pain Intensity (Out of 10): 0 L foot Pain Intensity (Out of 10): 5 L hip Pain Intensity (Out of 10): 0 feet and hands Pain Intensity (Out of 10): 3 - Overall Improvement % Improvement: 75 - Objective Objective/Function: FGA . CATSIB 120/120. Stairs: up and down recip without a rialing - Goals Goal 1:: I HEP Goal Progress: Goal Met Goal 2:: Increase CATSIB by 15 points to decrease fall risk ( at time of eval score was 95) Goal Progress: Goal Met Goal 3:: Be able to walk with more of a normal gait pattern with feet closer together Goal Progress: Goal Met Goal 4:: Decrease falls over the next 6 weeks to none Goal Progress: Goal Met - Plan Plan: DC PT to HEP - D/C Information Discharge Comments: DC PT to HEP If there are questions or concerns regarding this patient's physical therapy, please feel free to call me at [phone]. Thank you for the referral of this patient. Sincerely, Ana Horvath, MPT
== END 2019-04-17 19:00 | disposition home or self-care (01) ==
LOC: PT 18:00
PROVIDERS: Family Provider Family Medicine; PCP Family Medicine; Referring Provider Family Medicine; Visit Provider Family Medicine
DX: R26.9 Unspecified abnormalities of gait and mobility (principal); R29.6 Repeated falls
CPT/HCPCS: 97110; 97161; 97530; 97750

== ENCOUNTER → 2019-05-06 12:19 | Outpatient (CLI) | payer OTHER, SELFPAY ==
[2018-03-29 08:55] VITALS: BMI 34.2
[2019-05-06 14:36] LABS: BUN 20 mg/dL (7-18); Creatinine, Serum 0.78 mg/dL (0.55-1.02); EST Glomerular Filtration Rate 79 mL/min (>60); Est Glom Filt Rate - Afr Amer 96 mL/min (>60)
== END ==
PROVIDERS: Family Provider Family Medicine; PCP Family Medicine; Referring Provider Family Medicine; Visit Provider Nurse Practitioner Adult Health
DX: R47.81 Slurred speech (principal)
CPT/HCPCS: 36415; 82565; 84520

== ENCOUNTER → 2019-05-14 15:19 | Outpatient (CLI) | payer OTHER, SELFPAY ==
--- NOTE | 2019-05-14 15:32 | MRI_ITS ---
STUDY: MRI BRAIN WITH AND WITHOUT CONTRAST REASON FOR EXAM: Female, 64 years old. Slurred speech and occipital pain TECHNIQUE: Standardized multiplanar fat and water weighted pulse sequences were obtained. DOTAREM 20CC IV was administered for the contrast portion of the examination. COMPARISON: 06/27/2008 FINDINGS: Normal size of the ventricles and extra-axial spaces for the patient''s age. There are a limited number of small white matter hyperintensities, distributed throughout the deep white matter tracts of the cerebral hemispheres, consistent with mild chronic white matter ischemic changes. Normal bilateral basal ganglia. Normal thalami. There is no extra-axial fluid accumulation. Normal flow voids within the major intracranial circulation suggesting patency by spin echo criteria. Normal venous enhancement. There is no enhancing intra-axial or extra-axial abnormality. Normal sella turcica, pituitary gland, infundibular stalk, optic chiasm and hypothalamus. Normal tectal plate and pineal gland. Normal midbrain, samreen and medulla. Normal cerebellum. Normal basal cisterns. Normal bilateral temporal bones. Normal bilateral internal auditory canals. No demonstrated orbital abnormality, within the constraints of a routine brain study. Normal visualized paranasal sinuses. Normal calvarium and skull base. Normal visualized soft tissue structures. Normal visualized upper cervical spine. MRI/Brain W/WO Contrast IMPRESSION: No evidence of acute infarct or hemorrhage. Electronically Signed: Jeferson Valadez MD at 17:22 EST Tel , Service support ,
== END ==
PROVIDERS: Family Provider Family Medicine; PCP Family Medicine; Referring Provider Nurse Practitioner Adult Health; Visit Provider Nurse Practitioner Adult Health
DX: R47.81 Slurred speech (principal)
CPT/HCPCS: 70553; A9575

== ENCOUNTER → 2019-07-11 12:39 | Outpatient (CLI) | payer OTHER, SELFPAY ==
--- NOTE | 2019-07-11 15:18 | SP.MBSS_ITS ---
PRIMARY / SECONDARY DIAGNOSIS: dysphagia (R13.10) REFERRING PHYSICIAN: Dr. Elissa Alanis CURRENT DIET: Regular Textures/Thin liquids with avoidance of harder textures DENTITION: Natural Teeth MENTAL STATUS: WFL for assessment RESPIRATORY STATUS: O2 via room air PREVIOUS MODIFIED BARIUM SWALLOW STUDY: N/A REASON FOR REFERRAL: Patient presents with complaints of choking and coughing of liquids, saliva, spicy food. In addition, patient reported choking episode on hamburger last fall 2018 where Heimlich maneuver was attempted by . MEDICAL HISTORY: Patient is a 64/F with past medical history significant for a concussion (February 2019) d/t fall without open head injury. Patient and family began noticing symptoms of slurred speech, short term memory loss, and fatigue. Patient has seen a neurologist and has follow-up appointment at the end of the month. ? STUDY FINDINGS: Patient participated in a Modified Barium Swallow (MBS) study on 07/11/2019. fuel storage technician present during evaluation. This study was recorded in the lateral view and images were sent to PACs for storage. The following consistencies were presented to this patient for analysis of oropharyngeal swallow function: thin liquid, nectar thick liquid, pudding, and a regular textured, Caroline Doone cookie. Results of the MBS are as follows: ? ? ? PENETRATION / ASPIRATION SCALE (RAYGOZA): 1 = does not enter airway 2 = enters airway/above vocal folds/ejected 3 = enters airway/above vocal folds/not ejected 4 = enters airway/contacts vocal folds/ejected 5 = enters airway/contacts vocal folds/not ejected 6 = enters airway/below vocal folds/ejected 7 = enters airway/below vocal folds/not ejected despite effort 8 = enters airway/below vocal folds/no effort ? PENETRATION / ASPIRATION SCALE (SCORE): 1) Thin liquid via teaspoon = 1 2) Thin liquid via teaspoon = 1 3) Thin liquid via single small sip from cup = *Due to technical difficulty, image was not captured 4) Thin liquid via single small sip from cup = 1 5) Thin liquid via single large sip from cup = 1 6) Thin liquid via sequential sips from cup = 2 7) [place] thick liquid via single small sip from cup = 1 8) [place] thick liquid via single large sip from cup=1 9) Pudding = 1 10) Cookie = 1 11) Thin liquid via sequential sips from straw= 1 12) Thin liquid via sequential sips from straw = 1 ? IMPRESSION: mild oropharyngeal dysphagia (R13.12) ? ORAL PHASE CHARACTERIZED BY: LABIAL SEAL: no labial escape TONGUE CONTROL DURING BOLUS MANIPULATION: posterior escape of less than half of bolus BOLUS PREPARATION / MASTICATION: slow prolonged chewing/mashing with complete recollection BOLUS TRANSPORT / LINGUAL MOTION: slowed tongue motion ORAL RESIDUE: residue collection on oral structures PHARYNGEAL PHASE CHARACTERIZED BY: INITIATION OF PHARYNGEAL SWALLOW: bolus head in pyriforms at first hyoid excursion SOFT PALATE ELEVATION: no bolus between soft palate and pharyngeal wall LARYNGEAL ELEVATION: partial superior movement of thyroid cartilage/partial approximation of arytenoids cartilage to epiglottic petiole ANTERIOR HYOID EXCURSION: trace anterior movement EPIGLOTTIC MOVEMENT: complete epiglottic inversion LARYNGEAL VESTIBULE CLOSURE AT HEIGHT OF SWALLOW: incomplete laryngeal vestibule closure with narrow column of air/contrast in laryngeal vestibule PHARYNGEAL STRIPPING WAVE: pharyngeal stripping wave present / complete PHARYNGOESOPHAGEAL SEGMENT OPENING: complete distension and complete duration with no obstruction of flow TONGUE BASE RETRACTION: narrow column of contrast between tongue base and posterior pharyngeal wall PHARYNGEAL RESIDUE: trace residue within or on pharyngeal structures ESOPHAGEAL PHASE CHARACTERIZED BY: ESOPHAGEAL BOLUS CLEARANCE IN THE UPRIGHT POSITION: complete clearance; esophageal coating INTERPRETATION OF RESULTS: Patient presents with mild oropharyngeal dysphagia (R13.12). Oral phase primarily marked by prolonged mastication of solid Caroline Doone cookie requiring multiple swallows to clear oral residue. Patient has reported avoiding dry textures such as peanuts at home due to difficulty chewing. Suboptimal lingual contributing to decreased oral clearance of solids. Pharyngeal phase primarily marked by delayed pharyngeal swallow onset timing resulting in suboptimal bolus location upon swallow onset reduced laryngeal elevation and hyoid excursion. Pharyngeal residue noted prior to trials that resulted in patient feeling as if she needed to clear throat frequently throughout even when bolus did not enter airway. Penetration with ejection noted on larger sequential sips of thin liquid. No aspiration found during examination. Reported coughing during thin liquid intake and spicy food likely attributed to suboptimal tolerance of thin liquids with larger bolus volumes, with anticipated improved tolerance with upright positioning and reduced bolus volume. DIET TEXTURE RECOMMENDATIONS: Will recommend a regular textured, thin liquid diet.? ? COMPENSATORY STRATEGIES RECOMMENDED: Will recommend distant supervision during meals/drinks, limiting distractions while eating, consider chopping solids into smaller pieces, slow rate of intake, small bites and sips one at a time, consider double swallow for each bite/sip, have liquid chaser close by with meals, and seated upright at 90 degrees during PO intake, and remain upright for 30-60 minutes post meal (GERD precaution). ? RECOMMENDATIONS: Patient requires intensive skilled speech-language intervention targeting continued diet texture management, training and implementation of recommended compensatory strategies, in addition to completing further evaluation of cognition/memory and changes in speech. REFERRALS: Would strongly encourage patient to follow-up with her neurologist based on symptoms she is describing (i.e. short term memory loss, slurred speech, fatigue, confusion) to assess for changes over time. ? ADDITIONAL COMMENTS/RECOMMENDATIONS:? ?? Results and recommendations were discussed with the patient immediately following MBS completion, with the patient verbalizing understanding and agreement with all recommendations and education provided. In addition, the patient demonstrates good self awareness of recent changes in swallow and cognitive function. ? ? IMAGE COUNT: [id number] ? ? ? Kaile Bruce M.A., CCC-[employer]ST[employer]ARMER Speech Language Pathologist [facility] [address] [place] [address] [email or web address] [phone]
== END ==
PROVIDERS: Family Provider Family Medicine; PCP Family Medicine; Referring Provider Family Medicine; Visit Provider Family Medicine
DX: R47.81 Slurred speech (principal); R13.10 Dysphagia, unspecified
CPT/HCPCS: 76000; 92611

== ENCOUNTER → 2019-07-12 14:04 | Outpatient (CLI) | payer OTHER, SELFPAY ==
[2019-07-12 13:04] VITALS: BMI 33.6
[2019-07-12 14:57] LABS: Absolute Lymphocyte Count 2.02 X10^3/uL (0.83-4.51); Absolute Neutrophil Count 6.8 X10^3/uL (2.0-7.7); Basophil# 0.05 X10^3/uL; Basophil% 0.5 % (0-1); Eosinophil# 0.15 X10^3/uL; Eosinophils% 1.5 % (0-5); Hematocrit 41.3 % (37-47); Hemoglobin 13.6 g/dL (12.0-15.0); Lymphocyte # 2.02 X10^3/ul (4.0); Lymphocyte % 20.8 % (19-41); Mean Corp Hgb Conc 32.9 g/dL (32-36); Mean Corpuscular Hgb 29.7 pg (27.0-32.0); Mean Corpuscular Volume 90.2 fL (81-99); Mean Platelet Vol. 10.8 fl (6.2-12.0); Monocyte# 0.67 X10^3/uL; Monocyte% 6.9 % (0-10); NRBC Flagged by Analyzer 0 % (0-5); Neutrophil % 69.9 % (47-70); Platelet Count 206 K/mm3 (150-450); RBC Distribution Width CV 12.2 % (11.6-14.6); RBC Distribution Width SD 39.4 fl (35.1-43.9); Red Blood Count 4.58 M/mm3 (4.2-5.4); White Blood Count 9.7 K/mm3 (4.4-11.0)
[2019-07-12 15:33] LABS: BNP,B-Type NATRIURETIC PEPTIDE 3.7 pg/mL (0-100)
[2019-07-12 15:40] LABS: AST(SGOT) 97 U/L (15-37); Alanine Aminotransfer ALT/SGPT 108 U/L (13-56); Alkaline Phosphatase 120 U/L (45-117); Anion Gap 3 (5-15); BUN 17 mg/dL (7-18); BUN/Creat Ratio 22.4 RATIO (10-20); Calcium,Total 9.6 mg/dL (8.5-10.1); Chloride 103 mmol/L (98-107); Cholesterol 182 mg/dL (200); Creatinine, Serum 0.76 mg/dL (0.55-1.02); EST Glomerular Filtration Rate 82 mL/min (>60); Est Glom Filt Rate - Afr Amer 99 mL/min (>60); Globulin 4.2 g/dL (2.2-4.2); Glucose 105 mg/dL (74-106); High Density Lipoprotein 36 mg/dL; Potassium 3.9 mmol/L (3.5-5.1); Protein, Total 8.2 g/dL (6.4-8.2); Sodium Level 136 mmol/L (136-145); Triglycerides 497 mg/dL
== END ==
PROVIDERS: PCP Family Medicine; Referring Provider Physician Assistant Medical; Visit Provider Physician Assistant Medical
DX: E78.00 Pure hypercholesterolemia, unspecified (principal); R00.0 Tachycardia, unspecified; R06.09 Other forms of dyspnea
CPT/HCPCS: 36415; 80053; 80061; 83880; 85025

== ENCOUNTER → 2019-07-17 11:20 | Outpatient (CLI) | payer OTHER, SELFPAY ==
[2019-07-12 13:04] VITALS: BMI 33.6
[2019-07-17 14:16] LABS: Absolute Lymphocyte Count 1.73 X10^3/uL (0.83-4.51); Basophil# 0.04 X10^3/uL; Basophil% 0.5 % (0-1); Eosinophil# 0.12 X10^3/uL; Eosinophils% 1.6 % (0-5); Hematocrit 41.3 % (37-47); Hemoglobin 13.6 g/dL (12.0-15.0); Lymphocyte # 1.73 X10^3/ul (4.0); Lymphocyte % 23.2 % (19-41); Mean Corp Hgb Conc 32.9 g/dL (32-36); Mean Corpuscular Hgb 30.2 pg (27.0-32.0); Mean Corpuscular Volume 91.8 fL (81-99); Mean Platelet Vol. 10.8 fl (6.2-12.0); Monocyte# 0.58 X10^3/uL; Monocyte% 7.8 % (0-10); NRBC Flagged by Analyzer 0 % (0-5); Neutrophil # 4.95 X10^3/uL (2.7-7.7); Neutrophil % 66.5 % (47-70); Platelet Count 202 K/mm3 (150-450); RBC Distribution Width CV 12.3 % (11.6-14.6); RBC Distribution Width SD 40.5 fl (35.1-43.9); White Blood Count 7.5 K/mm3 (4.4-11.0)
[2019-07-17 14:30] LABS: ALB/GLOB Ratio 0.9 RATIO (0.9-2.4); AST(SGOT) 80 U/L (15-37); Alanine Aminotransfer ALT/SGPT 114 U/L (13-56); Albumin, Serum 3.9 g/dL (3.2-5.0); Alkaline Phosphatase 120 U/L (45-117); Anion Gap 6 (5-15); BUN 15 mg/dL (7-18); BUN/Creat Ratio 19.4 RATIO (10-20); Chloride 101 mmol/L (98-107); Creatinine, Serum 0.78 mg/dL (0.55-1.02); EST Glomerular Filtration Rate 80 mL/min (>60); Est Glom Filt Rate - Afr Amer 97 mL/min (>60); Globulin 4.2 g/dL (2.2-4.2); Glucose 134 mg/dL (74-106); Potassium 4.1 mmol/L (3.5-5.1); Protein, Total 8.1 g/dL (6.4-8.2); Sodium Level 137 mmol/L (136-145)
== END ==
PROVIDERS: PCP Family Medicine; Referring Provider Internal Medicine Rheumatology; Visit Provider Internal Medicine Rheumatology
DX: L40.59 Other psoriatic arthropathy (principal); Z79.899 Other long term (current) drug therapy; L40.8 Other psoriasis; K76.0 Fatty (change of) liver, not elsewhere classified; K21.9 Gastro-esophageal reflux disease without esophagitis; M21.40 Flat foot [pes planus] (acquired), unspecified foot; E11.9 Type 2 diabetes mellitus without complications; F32.89 Other specified depressive episodes; E78.5 Hyperlipidemia, unspecified
CPT/HCPCS: 36415; 80053; 85025

== ENCOUNTER → 2019-07-29 09:40 | Outpatient (CLI) | payer OTHER, SELFPAY ==
[2019-07-12 13:04] VITALS: BMI 33.6
--- NOTE | 2019-07-29 09:42 | ECHOCS_ITS ---
Reason For Study: DYSPNEA/SOB Procedure This was a 2D Doppler, Color Flow transthoracic echocardiogram. The study was technically difficult. Contrast injection was performed. Exam performed in department. Left Ventricle Normal LV size. Left ventricular systolic function is normal. The estimated ejection fraction is 60 %. No evidence for diastolic dysfunction. No regional wall motion abnormalities noted. Right Ventricle Normal RV size. Normal systolic function. Atria Normal left atrium. Normal right atrium. Agitated saline contrast study considered positive for right to left interatrial shunt compatible with a small PFO versus ASD. Mitral Valve There is no mitral annular calcification. Normal mitral valve. Trivial mitral valve insufficiency. Tricuspid Valve Normal tricuspid valve. Trivial tricuspid valve insufficiency. Right ventricular systolic pressure estimated to be 28 mmHg. Aortic Valve Trisinus/trileaflet aortic valve. Normal aortic valve. Pulmonic Valve The pulmonic valve is not well visualized. Great Vessels Normal sized aortic root. Pericardium/Pleural No pericardial effusion. Medication 22 gauge I.V. with prn adaptor inserted into right arm. Diluted definity 2ml given slow IV push to enhance endocardial definition. Performed a rapid injection of agitated mix of 9 cc saline and 1cc air to assess for atrial septal defect. MMode/2D Measurements & Calculations LVIDd: 4.4 cm IVSd: 0.92 cm Ao root diam: 3.0 cm LVIDs: 3.0 cm LVPWd: 0.68 cm RVDd: 3.6 cm FS: 32.5 % LAV(MOD-bp): 45.2 ml LVAd ap4: 33.3 cm2 SV(MOD-sp4): 69.6 ml LAV(MOD-bp) Indexed: 19.9 ml/m2 EDV(MOD-sp4): 112.2 ml LAV(MOD-sp2): 48.0 ml EDV(sp4-el): 117.6 ml LAV(MOD-sp4): 41.5 ml LVAs ap4: 18.6 cm2 ESV(MOD-sp4): 42.6 ml ESV(sp4-el): 45.0 ml EF(MOD-sp4): 62.1 % EF(sp4-el): 61.7 % SV(sp4-el): 72.6 ml LA A4 area: 17.2 cm2 LA dimension(2D): 3.7 cm RA A4 area: 15.9 cm2 Time Measurements MV dec time: 0.23 sec Doppler Measurements & Calculations MV E max brooks: 63.3 cm/sec Lat Peak E' Brooks: 11.4 cm/sec Med Peak E' Brooks: 7.8 cm/sec MV A max brooks: 83.1 cm/sec E/E' lat: 5.5 E/E' med: 8.2 MV E/A: 0.76 Ao V2 max: 139.8 cm/sec LV V1 max: 81.7 cm/sec PA V2 max: 88.4 cm/sec Ao max P.8 mmHg LV V1 max P.7 mmHg TR max brooks: 250.5 cm/sec TR max P.1 mmHg Interpretation Summary The study was technically difficult. Contrast injection was performed. Left ventricular systolic function is normal. The estimated ejection fraction is 60 %. Trivial mitral valve insufficiency. Trivial tricuspid valve insufficiency. Right ventricular systolic pressure estimated to be 28 mmHg. No evidence for diastolic dysfunction. Agitated saline contrast study considered positive for right to left interatrial shunt compatible with a small PFO versus ASD. Ordering Physician: Anju Rodriguez/Domingo Arroyo Referring Physician: KAREEN FLEMING Performed By: Jacqueline Carver RDCS
== END ==
PROVIDERS: PCP Family Medicine; Referring Provider Physician Assistant Medical; Visit Provider Physician Assistant Medical
DX: R06.09 Other forms of dyspnea (principal)
CPT/HCPCS: 93306; Q9957; A4216; C8929

== ENCOUNTER → 2019-08-09 09:15 | Outpatient (CLI) | payer OTHER, SELFPAY ==
[2019-07-12 13:04] VITALS: BMI 33.6
[2019-08-09 11:26] LABS: AST(SGOT) 66 U/L (15-37); Alanine Aminotransfer ALT/SGPT 92 U/L (13-56); Albumin, Serum 3.5 g/dL (3.2-5.0); Alkaline Phosphatase 110 U/L (45-117); Bilirubin, Direct 0.07 mg/dL (0.00-0.30); Cholesterol 222 mg/dL (200); Globulin 4.1 g/dL (2.2-4.2); High Density Lipoprotein 33 mg/dL; Protein, Total 7.6 g/dL (6.4-8.2); Triglycerides 535 mg/dL
== END ==
PROVIDERS: PCP Family Medicine; Referring Provider Physician Assistant Medical; Visit Provider Physician Assistant Medical
DX: E78.00 Pure hypercholesterolemia, unspecified (principal); R74.8 Abnormal levels of other serum enzymes
CPT/HCPCS: 36415; 80061; 80076

== ENCOUNTER → 2019-10-15 13:44 | Outpatient (CLI) | payer OTHER, SELFPAY ==
[2019-07-12 13:04] VITALS: BMI 33.6
[2019-10-15 14:34] LABS: Absolute Lymphocyte Count 2.12 X10^3/uL (0.83-4.51); Absolute Neutrophil Count 5.4 X10^3/uL (2.0-7.7); Basophil# 0.04 X10^3/uL; Basophil% 0.5 % (0-1); Eosinophil# 0.24 X10^3/uL; Eosinophils% 2.8 % (0-5); Hematocrit 41.2 % (37-47); Hemoglobin 13.3 g/dL (12.0-15.0); Lymphocyte # 2.12 X10^3/ul (4.0); Lymphocyte % 25.1 % (19-41); Mean Corp Hgb Conc 32.3 g/dL (32-36); Mean Corpuscular Hgb 29.6 pg (27.0-32.0); Mean Corpuscular Volume 91.6 fL (81-99); Mean Platelet Vol. 10.8 fl (6.2-12.0); Monocyte# 0.61 X10^3/uL; Monocyte% 7.2 % (0-10); NRBC Flagged by Analyzer 0 % (0-5); Neutrophil # 5.39 X10^3/uL (2.7-7.7); Platelet Count 192 K/mm3 (150-450); RBC Distribution Width CV 12.3 % (11.6-14.6); RBC Distribution Width SD 40.8 fl (35.1-43.9); White Blood Count 8.4 K/mm3 (4.4-11.0)
[2019-10-15 15:04] LABS: ALB/GLOB Ratio 0.9 RATIO (0.9-2.4); AST(SGOT) 42 U/L (15-37); Alanine Aminotransfer ALT/SGPT 63 U/L (13-56); Albumin, Serum 3.7 g/dL (3.2-5.0); Alkaline Phosphatase 139 U/L (45-117); Anion Gap 8 (5-15); BUN 14 mg/dL (7-18); BUN/Creat Ratio 19.3 RATIO (10-20); Calcium,Total 9.1 mg/dL (8.5-10.1); Chloride 102 mmol/L (98-107); Creatinine, Serum 0.72 mg/dL (0.55-1.02); EST Glomerular Filtration Rate 86 mL/min (>60); Est Glom Filt Rate - Afr Amer 105 mL/min (>60); Glucose 111 mg/dL (74-106); Protein, Total 7.7 g/dL (6.4-8.2); Sodium Level 140 mmol/L (136-145)
== END ==
PROVIDERS: PCP Family Medicine; Referring Provider Internal Medicine Rheumatology; Visit Provider Internal Medicine Rheumatology
DX: L40.59 Other psoriatic arthropathy (principal); L40.8 Other psoriasis; K76.0 Fatty (change of) liver, not elsewhere classified; K21.9 Gastro-esophageal reflux disease without esophagitis; M21.40 Flat foot [pes planus] (acquired), unspecified foot; E11.9 Type 2 diabetes mellitus without complications; F32.89 Other specified depressive episodes; E78.5 Hyperlipidemia, unspecified; Z79.899 Other long term (current) drug therapy
CPT/HCPCS: 36415; 80053; 85025

== ENCOUNTER → 2020-01-09 | Outpatient (CLI) | payer OTHER, SELFPAY ==
[2019-07-12 13:04] VITALS: BMI 33.6
== END | disposition home or self-care (01) ==
PROVIDERS: Internal Medicine Cardiovascular Disease; PCP Family Medicine; Visit Provider Family Medicine
DX: Z20.828 Contact with and (suspected) exposure to other viral communicable diseases (principal)
CPT/HCPCS: 87635; U0003

== ENCOUNTER → 2020-02-17 10:14 | Outpatient (CLI) | payer OTHER, SELFPAY ==
[2019-07-12 13:04] VITALS: BMI 33.6
== END ==
PROVIDERS: PCP Family Medicine; Referring Provider Internal Medicine Cardiovascular Disease; Visit Provider Internal Medicine Cardiovascular Disease
DX: Z01.818 Encounter for other preprocedural examination (principal)
CPT/HCPCS: 87635; C9803; U0003

== ENCOUNTER → 2020-02-22 09:03 | Outpatient (CLI) | payer OTHER, SELFPAY ==
[2020-02-19 11:03] VITALS: BMI 30.2
[2020-02-22 09:29] LABS: Absolute Lymphocyte Count 1.81 X10^3/uL (0.83-4.51); Absolute Neutrophil Count 5.1 X10^3/uL (2.0-7.7); Basophil# 0.03 X10^3/uL; Basophil% 0.4 % (0-1); Eosinophil# 0.16 X10^3/uL; Eosinophils% 2.1 % (0-5); Hematocrit 39.4 % (37-47); Hemoglobin 12.7 g/dL (12.0-15.0); Lymphocyte # 1.81 X10^3/ul (4.0); Lymphocyte % 23.4 % (19-41); Mean Corp Hgb Conc 32.2 g/dL (32-36); Mean Corpuscular Hgb 29.9 pg (27.0-32.0); Mean Corpuscular Volume 92.7 fL (81-99); Mean Platelet Vol. 10.3 fl (6.2-12.0); Monocyte# 0.57 X10^3/uL; Monocyte% 7.4 % (0-10); NRBC Flagged by Analyzer 0 % (0-5); Neutrophil # 5.13 X10^3/uL (2.7-7.7); Neutrophil % 66.3 % (47-70); Platelet Count 190 K/mm3 (150-450); RBC Distribution Width CV 12.3 % (11.6-14.6); RBC Distribution Width SD 41.6 fl (35.1-43.9); Red Blood Count 4.25 M/mm3 (4.2-5.4); White Blood Count 7.7 K/mm3 (4.4-11.0)
[2020-02-22 09:57] LABS: ALB/GLOB Ratio 0.9 RATIO (0.9-2.4); AST(SGOT) 20 U/L (15-37); Alanine Aminotransfer ALT/SGPT 32 U/L (13-56); Albumin, Serum 3.7 g/dL (3.2-5.0); Alkaline Phosphatase 134 U/L (45-117); Anion Gap 3 (5-15); BUN 13 mg/dL (7-18); BUN/Creat Ratio 14.8 RATIO (10-20); Calcium,Total 9.1 mg/dL (8.5-10.1); Chloride 106 mmol/L (98-107); Cholesterol 126 mg/dL (200); Creatinine, Serum 0.88 mg/dL (0.55-1.02); EST Glomerular Filtration Rate 69 mL/min (>60); Est Glom Filt Rate - Afr Amer 84 mL/min (>60); Glucose 109 mg/dL (74-106); High Density Lipoprotein 37 mg/dL; Potassium 4.4 mmol/L (3.5-5.1); Protein, Total 7.7 g/dL (6.4-8.2); Sodium Level 141 mmol/L (136-145); Triglycerides 343 mg/dL; Very Low Density Lipoprotein 69 mg/dL (5-40)
== END ==
PROVIDERS: PCP Family Medicine; Referring Provider Internal Medicine Cardiovascular Disease; Visit Provider Internal Medicine Cardiovascular Disease
DX: L40.59 Other psoriatic arthropathy (principal); L40.8 Other psoriasis; K76.0 Fatty (change of) liver, not elsewhere classified; K21.9 Gastro-esophageal reflux disease without esophagitis; M21.40 Flat foot [pes planus] (acquired), unspecified foot; E11.9 Type 2 diabetes mellitus without complications; E78.00 Pure hypercholesterolemia, unspecified; F32.89 Other specified depressive episodes; Z79.899 Other long term (current) drug therapy
CPT/HCPCS: 36415; 80053; 80061; 82248; 85025

== ENCOUNTER → 2020-02-25 08:00 | Outpatient (CLI) | payer OTHER, SELFPAY ==
[2019-07-12 13:04] VITALS: BMI 33.6
[2020-02-19 11:03] VITALS: BMI 30.2
--- NOTE | 2020-02-25 08:02 | ECHOTEE_ITS ---
Reason For Study: INTRACARDIAC SHUNT Medication MIKEY probe 6VT-D (SN [id number]) passed with minimal difficulty. No complications were noted. Versed 1 mg given slow IVP. Fentanyl 50 mcg given slow IVP. Cetacaine Topical [place] given X3 orally. Performed a rapid injection of agitated mix of 9 cc saline and 1cc air to assess for atrial septal defect. Left Ventricle Normal LV size. Left ventricular systolic function is normal. The estimated ejection fraction is 60 %. No regional wall motion abnormalities noted. Right Ventricle Normal RV size. The right ventricular wall motion is normal. Atria Color-flow Doppler compatible with left to right interatrial shunt compatible with a small PFO. Agitated saline contrast study compatible with a right to left interatrial shunt compatible with a small PFO. Normal left atrium. There is no sponatenous contrast in the left atrium. No thrombus is detected in the left atrial appendage. Normal right atrium. There is no sponatenous contrast in the right atrium. No RA/appendage thrombus identified. Mitral Valve There is no mitral annular calcification. Normal mitral valve. Mild (1+) mitral valve insufficiency. Tricuspid Valve Normal tricuspid valve. Trivial tricuspid valve insufficiency. Aortic Valve Trisinus/trileaflet aortic valve. Normal aortic valve. Pulmonic Valve The pulmonic valve is not well visualized. Vessels Normal-appearing thoracic aorta. Pericardium No pericardial effusion. Interpretation Summary Left ventricular systolic function is normal. The estimated ejection fraction is 60 %. There is no sponatenous contrast in the left atrium. No thrombus is detected in the left atrial appendage. Mild (1+) mitral valve insufficiency. Trivial tricuspid valve insufficiency. Color-flow Doppler compatible with left to right interatrial shunt compatible with a small PFO. Agitated saline contrast study compatible with a right to left interatrial shunt compatible with a small PFO. Ordering Physician: Domingo Arroyo Referring Physician: KAREEN FLEMING Performed By: Jacqueline Carver RDCS
--- NOTE | 2020-02-25 09:59 | PCM.HP.BLA ---
Problem List (1) Abnormal echocardiogram Status: Acute History and Physical Date of Admission: 02/25/20 [facility] [address] [place] [address] OFFICE VISIT Date of Service: 02/19/20 MR#: [id number] Acct: [id number] Name: ALLEGRA LOWE Rep #: [id number] : 1955 Provider: Dr. Domingo Arroyo MD Age/Sex: 64/F [place] [facility] [place]: Signed HPI HPI History of Present Illness Surgical H&P: Yes Details: ALLEGRA LOWE, is a 64 year old white female who presents to the office today for a cardiovascular outpatient follow-up with a history of sinus tachycardia and hyperlipidemia and as previously noted a transthoracic echocardiogram demonstrating concerns of an interatrial shunt for which she had previously been asked to undergo further evaluation with a MIKEY-placed on hold secondary to the coronavirus pandemic. At the moment she denies any symptoms of classic angina pectoris or evidence of CHF or pulmonary edema. There has been no reports of ongoing palpitations or rapid rates. She does not recall any syncopal events. Earlier this year she underwent evaluation with a transthoracic echocardiogram. She was found to have evidence of an interatrial shunt compatible with either PFO or ASD. She was asked to have further evaluation with a MIKEY. This was placed on hold secondary to the ongoing coronavirus pandemic. She is now being rescheduled for this. In preparation for this she has recently undergone a preprocedure COVID-19 test which was reported as negative. She states she is quarantining herself at home, other than physician visits, in preparation for that procedure. As you know she had a previous fall where she struck her head. She has been undergoing evaluation by neurology in [place], [place] based upon this event and subsequent findings of slurred speech. She states thus far no one has been able to find an etiology for her slurred speech, etc. Intake Vital Signs 02/19/20 Height 5 ft 11 in 02/19/20 Weight: 217 lb 4 oz 02/19/20 BP 100/68 02/19/20 Blood Pressure Location Lt brachial 02/19/20 Position Sitting 02/19/20 Respiration 18 02/19/20 Pulse 64 02/19/20 Pulse Source Auscultation Intake Visit Reasons: 9 m fu Entry Level Project Coordinator Required: No Accompanied by: Self Allergies lisinopril Adverse Reaction (Verified 02/19/20 11:09) cough Medications Calcium Carb/Vitamin D [Caltrate-600 With Vit D Tab] 1 tab PO DAILY@0800 06/11/13 [History Confirmed 02/19/20] Lactobacillus Acidophilus [Acidophilus] 1 tab PO DAILY 06/11/13 [History Confirmed 02/19/20] Multivitamins,Therapeutic [Multivitamin] 1 tab PO DAILY 06/11/13 [History Confirmed 02/19/20] Nadolol [Corgard] 20 mg PO DAILY 06/11/13 [History Confirmed 02/19/20] [place]-3 Fatty Acids/Fish Oil [[place] 3 Fish Oil Softgel] 1 ea PO DAILY 06/11/13 [History Confirmed 02/19/20] duloxetine 60 mg capsule,delayed release 60 mg PO DAILY 10/01/17 [History Confirmed 02/19/20] losartan 50 mg tablet 50 mg PO QDAY 12/14/17 [History Confirmed 02/19/20] apremilast 30 mg tablet 30 mg PO BID 07/12/19 [History Confirmed 02/19/20] aspirin 81 mg tablet,delayed release 81 mg PO DAILY 07/12/19 [History Confirmed 02/19/20] trazodone 50 mg tablet 50 mg PO QHS PRN 07/12/19 [History Confirmed 02/19/20] atorvastatin 40 mg tablet 40 mg PO QHS #90 tab 08/09/19 [Rx Confirmed 02/19/20] PFSH Medical History Pure hypercholesterolemia (Chronic) Long-term use of high-risk medication (Chronic) Sinus tachycardia (Chronic) Diabetes (Acute) Knee pain (Acute) HTN (hypertension) (Chronic) Surgical History H/O thumb surgery (Acute) H/O total hysterectomy (Acute) History of bunionectomy of both great toes (Acute) Family History Other Colon cancer High triglycerides Social History (Updated 02/19/20 @ 13:[address] Domingo Arroyo MD) Smoking Status: Never smoker alcohol intake: never ROS Const Const: Positive for fatigue; negative for weakness, frequent falls, excessive sweating, weight gain or weight loss Eyes Eyes: Negative for transient loss of vision, blurry vision or change in vision ENT ENT: Positive for dizziness (bending over) and balance problems (completed PT) Cardio Chest Pain: Yes (when laying on left side) Location: mid sternal Palpitations: No Edema: None Muscle aches with walking: None Resp Respiratory: Positive for SOB with activity and SOB at rest GI GI: Negative vomiting or vomiting blood/hematemesis : Negative for hematuria Musc Musc: Positive for balance problems (completed PT); negative for muscle aches/ myalgia, muscle weakness or joint pain Skin Skin: Negative non-healing lesions or rash Neuro Neuro: Positive for dizziness (bending over); negative for lightheadedness, orthostatic symptoms, frequent falls, weakness or blurry vision Anatoly Hematologic/Lymphatic: Negative for easy bleeding Endo Endo: Positive for fatigue; negative for excessive sweating Psych Psych: Negative for anxiety or depression Allergy Allergy/Immunology: Negative for hives, Negative for rash Cardiology Exam Const Appearance: cooperative, healthy appearing, comfortable, no acute distress, well developed and well groomed Nutritional Appearance: overweight Orientation: alert, awake and oriented x3 Head Head: normal to inspection, normocephalic and atraumatic Ears: hearing grossly normal bilaterally Nose: external nose normal Face and Sinus: face symmetric Eyes Eyelids: eyelids normal Conjunctivae: conjunctivae normal Pupils: PERRL EOM: EOM intact bilaterally Neck Neck: normal visual inspection, full ROM and no JVD Carotids: Negative bruit Neck Mass: Negative Neck mass Chest Chest inspection: normal inspection of the chest, symmetric chest movement and normal respiratory effort Auscultation: Bilateral: Clear to Auscultation Cardio Palpation: normal PMI Rate: regular rate Rhythm: regular rhythm Heart sounds: S1 normal and S2 normal; negative rub, gallop or murmur GI GI: normal to inspection, soft and bowel sounds present; negative tender Neuro General: alert, awake, oriented x3, moves all extremities and other (slurred speech) Skin Skin: no rashes or lesions noted Extremities Pulses: Normal: Right Posterior Tibial Pulse, Left Posterior Tibial Pulse, Right Radial Pulse, Left Radial Pulse Lower Extremity Edema: None: Bilateral Psych Psychological: normal affect Assessment & Plan 1. 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 There is some question whether it is a PFO or ASD. Thus she is going to proceed with further evaluation with a MIKEY. Hopefully this will help diagnose her findings and whether or not she needs additional evaluation and/or care. Orders Orders: Echo Transesophageal (MIKEY) 02/25/20 2. Pure hypercholesterolemia E78.00 Plan She will also have a future fasting lipid profile follow-up. She is hopeful that her attempts at dietary therapy and weight loss will be helpful to her in addition to her medications. Orders Orders: Lipid Profile Today Liver Profile Today Echo Transesophageal (MIKEY) 02/25/20 Plan Detail Additional Comments The above evaluation and [id number] respect to risk and benefits and pros and cons was discussed with her. She was agreeable to this approach. Thank you for allowing me to participate in the care of your patient. Please don't hesitate to call if any issues arise. This note was generated using a voice recognition system and there may be incorrect words, spelling or punctuation that were not noted when reviewing the office note prior to saving. 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 Echocardiogram: 07-29-2019 Interpretation Summary The study was technically difficult. Contrast injection was performed. Left ventricular systolic function is normal. The estimated ejection fraction is 60 %. Trivial mitral valve insufficiency. Trivial tricuspid valve insufficiency. Right ventricular systolic pressure estimated to be 28 mmHg. No evidence for diastolic dysfunction. Agitated saline contrast study considered positive for right to left interatrial shunt compatible with a small PFO versus ASD. Stress test from March 2009 did not show any ECG changes and nuclear images were negative for myocardial induced ischemia. Stress echocardiogram from November 2005 was negative for myocardial induced ischemia. Labs LDL Cholesterol TNP 08/09/19 HDL Cholesterol 33 mg/dL (40-) L 08/09/19 Triglycerides 535 mg/dL (-199) H 08/09/19 VLDL Cholesterol TNP 08/09/19 Diagnostics Echocardiogram 07/29/19 Chest X-Ray 07/02/18 COVID (Procedure Consent) Procedure Criteria Procedure Criteria: Yes Elective 02/19/20 1313 <Electronically signed by Domingo Arroyo MD> Date Domingo Arroyo MD Cosigner Signature: Date (if applicable) CC: Dr. Elissa Alanis MD ~ I have re-examined the patient. There are no clinical changes since date of exam. Procedure Criteria Procedure Type: Elective COVID Risk Discussion: The surgeon/proceduralist and patient have discussed in detail the risk of exposure to and/or potential harm posed by the COVID-19 virus with having a surgery/procedure at this time versus the risk of delaying the surgery/procedure. It is not possible to know either the risk of delaying the surgery or procedure or chance of getting an infection with perfect accuracy, but a joint decision was made between the patient and the surgeon/proceduralist to proceed at this time with the scheduled surgery/procedure as indicated on the consent form.
== END ==
PROVIDERS: PCP Family Medicine; Referring Provider Internal Medicine Cardiovascular Disease; Visit Provider Internal Medicine Cardiovascular Disease
DX: Q21.1 Atrial septal defect (principal); E78.00 Pure hypercholesterolemia, unspecified; I08.1 Rheumatic disorders of both mitral and tricuspid valves; I10 Essential (primary) hypertension; Z79.82 Long term (current) use of aspirin; Z79.899 Other long term (current) drug therapy
CPT/HCPCS: 93312; 93320; 93325; J7040; A4216

== ENCOUNTER → 2020-07-16 12:18 | Outpatient (CLI) | payer OTHER, SELFPAY ==
[2020-02-19 11:03] VITALS: BMI 30.2
--- NOTE | 2020-07-16 12:20 | BI_ITS ---
MAMMOGRAPHY - BILATERAL SCREENING REASON FOR EXAM: Female, 65 years old. Routine annual screening examination. PERTINENT HISTORY: Non-contributory. Prior right ultrasound-guided breast biopsy. TECHNIQUE: Digital bilateral breast flakito (3D mammographic acquisition) in the CC and MLO projections. 2-D mediolateral oblique (MLO) and craniocaudad (CC) views of both breasts were obtained. CAD: Full Field Digital Mammography with Computer Added Detection was performed. COMPARISON: Comparison is made with prior study dated 04/04/2019 and 01/05/2018. FINDINGS: Breast Composition: There are scattered areas of fibroglandular density. There are no dominant masses or suspicious calcifications. A tissue clip marker is once again seen in the deep mid slightly lateral portion of the right breast. Stable small benign-appearing bilateral axillary lymph nodes. No other significant abnormalities are identified. There has been no significant change since the prior study. BI/SCRN MAMM (CAD)W/FLAKITO BILAT IMPRESSION: Stable bilateral screening mammogram. Yearly follow-up mammogram recommended. (A) ASSESSMENT CATEGORY: BIRADS Category 2: Benign. A letter regarding these results will be sent to the patient by the facility within 30 days. Approximately 10% of breast cancers are not detected by mammography. A normal mammogram should not delay biopsy of a clinically suspicious abnormality. [id number] Electronically Signed: Pawan Leong MD at 9:42 EST , Service support ,
== END ==
PROVIDERS: PCP Family Medicine; Referring Provider Family Medicine; Visit Provider Family Medicine
DX: Z12.31 Encounter for screening mammogram for malignant neoplasm of breast (principal)
CPT/HCPCS: 77063; 77067

== ENCOUNTER → 2020-08-15 09:53 | Outpatient (CLI) | payer OTHER, SELFPAY ==
[2020-02-19 11:03] VITALS: BMI 30.2
[2020-08-15 10:50] LABS: ALB/GLOB Ratio 1.1 RATIO (0.9-2.4); AST(SGOT) 29 U/L (15-37); Alanine Aminotransfer ALT/SGPT 43 U/L (13-56); Albumin, Serum 4.1 g/dL (3.2-5.0); Alkaline Phosphatase 115 U/L (45-117); Anion Gap 6 (5-15); BUN 12 mg/dL (7-18); Calcium,Total 9.2 mg/dL (8.5-10.1); Chloride 104 mmol/L (98-107); Creatinine, Serum 0.71 mg/dL (0.55-1.02); EST Glomerular Filtration Rate 89 mL/min (>60); Est Glom Filt Rate - Afr Amer 107 mL/min (>60); Globulin 3.7 g/dL (2.2-4.2); Glucose 117 mg/dL (74-106); Potassium 4.1 mmol/L (3.5-5.1); Protein, Total 7.8 g/dL (6.4-8.2); Sodium Level 140 mmol/L (136-145)
[2020-08-15 10:52] LABS: Absolute Lymphocyte Count 1.08 X10^3/uL (0.83-4.51); Absolute Neutrophil Count 2.6 X10^3/uL (2.0-7.7); Basophil# 0.02 X10^3/uL; Basophil% 0.5 % (0-1); Eosinophil# 0.11 X10^3/uL; Eosinophils% 2.5 % (0-5); Lymphocyte # 1.08 X10^3/ul (4.0); Lymphocyte % 24.9 % (19-41); Mean Corp Hgb Conc 31.6 g/dL (32-36); Mean Corpuscular Hgb 29.6 pg (27.0-32.0); Mean Corpuscular Volume 93.6 fL (81-99); Mean Platelet Vol. 10.3 fl (6.2-12.0); Monocyte# 0.53 X10^3/uL; Monocyte% 12.2 % (0-10); NRBC Flagged by Analyzer 0 % (0-5); Neutrophil # 2.58 X10^3/uL (2.7-7.7); Neutrophil % 59.7 % (47-70); Platelet Count 148 K/mm3 (150-450); RBC Distribution Width CV 12.7 % (11.6-14.6); Red Blood Count 4.06 M/mm3 (4.2-5.4); White Blood Count 4.3 K/mm3 (4.4-11.0)
== END ==
PROVIDERS: PCP Family Medicine; Referring Provider Internal Medicine Rheumatology; Visit Provider Internal Medicine Rheumatology
DX: L40.59 Other psoriatic arthropathy (principal); L40.8 Other psoriasis; K76.0 Fatty (change of) liver, not elsewhere classified; K21.9 Gastro-esophageal reflux disease without esophagitis; M21.40 Flat foot [pes planus] (acquired), unspecified foot; E11.9 Type 2 diabetes mellitus without complications; F32.89 Other specified depressive episodes; E78.5 Hyperlipidemia, unspecified; Z79.899 Other long term (current) drug therapy
CPT/HCPCS: 36415; 80053; 85025

== ENCOUNTER → 2020-08-19 11:16 | Outpatient (CLI) | payer OTHER, SELFPAY ==
[2020-08-19 10:36] VITALS: BMI 29.4
[2020-08-19 13:24] LABS: AST(SGOT) 23 U/L (15-37); Alanine Aminotransfer ALT/SGPT 37 U/L (13-56); Albumin, Serum 4.2 g/dL (3.2-5.0); Alkaline Phosphatase 118 U/L (45-117); Bilirubin, Direct 0.13 mg/dL (0.00-0.30); Cholesterol 144 mg/dL (200); Globulin 3.8 g/dL (2.2-4.2); High Density Lipoprotein 33 mg/dL; Triglycerides 399 mg/dL; Very Low Density Lipoprotein 80 mg/dL (5-40)
== END ==
PROVIDERS: PCP Family Medicine; Referring Provider Nurse Practitioner Family; Visit Provider Nurse Practitioner Family
DX: R00.0 Tachycardia, unspecified (principal); E78.00 Pure hypercholesterolemia, unspecified; R93.1 Abnormal findings on diagnostic imaging of heart and coronary circulation; Z79.899 Other long term (current) drug therapy
CPT/HCPCS: 36415; 80061; 80076

== ENCOUNTER → 2020-08-27 12:45 | Outpatient (CLI) | payer OTHER, SELFPAY ==
[2020-02-19 11:03] VITALS: BMI 30.2
[2020-08-19 10:36] VITALS: BMI 29.4
--- NOTE | 2020-08-27 13:37 | ST.MBS ---
Modified Barium Swallow - Patient Information Study Date: 08/27/20 Study Time: 13:00 Direct Billable Minutes: 120 Total Minutes procedure & reportin Diagnosis: oropharyngeal dysphagia (R13.12) Referring Physician: Luann Ceballos Reason for Referral: Patient was seen previously for MBS study on 07/11/2019 due to swallowing difficulty. Pt now presents this date with increased difficulty swallowing secondary to recent diagnosis of ALS. MBS study ordered to determine presence/degree of aspiration. Medical History: All medical history provided by patient report. The patient is a 65/F with recent diagnosis of amyotrophic lateral sclerosis (ALS) or Sarah Gehrig's disease. Patient reports seeing a speech-language pathologist in [place] every two months. The patient uses an AAC device to aid in her communication as speech has become very difficult and effortful. The patient reports surgery for PEG tube placement scheduled next week. Current Diet Ordered: minced and moist textures/mildly thick liquids Dentition: Natural Teeth Mental Status: WNL Respiratory Status: Oxygenating on Room Air - Study Findings Consistencies: Thin Liquid, [place] Thick Liquid, Honey Thick Liquid, Pudding, Cookie - Penetration-Aspiration Scale Penetration-Aspiration Scale: OBJECTIVE ASSESSMENT OF SWALLOW FUNCTION (QUANTITATIVE ? PER TRIAL): PENETRATION / ASPIRATION SCALE (RAYGOZA): 1 = does not enter airway 2 = enters airway/above vocal folds/ejected 3 = enters airway/above vocal folds/not ejected 4 = enters airway/contacts vocal folds/ejected 5 = enters airway/contacts vocal folds/not ejected 6 = enters airway/below vocal folds/ejected 7 = enters airway/below vocal folds/not ejected despite effort 8 = enters airway/below vocal folds/no effort - Penetration-Aspiration Scale Score Thin Liquid via teaspoon Result: 1= does not enter airway Comment: Cannot definitively rule out penetration or aspiration due to patients shift in position. Thin Liquid via teaspoon Trial 2 Result: 5= enters airways/contacts vocal folds/not ejected Thin Liquid via small single sip from cup Result: 4= enters airway/contacts vocal folds/ejected Thin Liquid via large single sip from cup Result: 8= enters airway/below vocal folds/no effort [place] Thick Liquid via small single sip from cup Result: 7= enters airways/below vocal folds/not ejected despite effort Comment: Patient unable to take hard cough to clear. Pt cued to clear throat and take effortful swallow. Honey Thick Liquid via small single sip from cup Result: 1= does not enter airway Honey Thick Liquid via large single sip from cup Result: 1= does not enter airway Pudding via teaspoon Result: 1= does not enter airway Cookie Result: 1= does not enter airway [place] Thick Liquid via small single sip from cup Chin tuck Result: 1= does not enter airway - Oral Phase Labial Seal: No Labial Escape Tongue Control During Bolus Hold: Posterior escape of greater than half of bolus Bolus Preparation/Mastication: Slow prolonged chewing/mashing with complete recollection Bolus Transport/Lingual Motion: Delayed initiation of tongue motion Oral Residue: Residue collection on oral structures - Pharyngeal Phase Initiation of Pharyngeal Swallow: Bolus head in pyriforms Soft Palate Elevation: No bolus between soft palate and pharyngeal wall Laryngeal Elevation: Partial superior movement thyroid cart/partial apprx aryt-epig petiole Anterior Hyoid Excursion: Partial anterior movement Epiglottic Movement: Complete inversion Laryngeal Vestibule Closure at Height of Swallow: Incomplete; narrow column of air/contrast in laryngeal vestibule Pharyngeal Stripping Wave: Present - complete Pharyngoesophageal Segment Opening: Parital distension and partial duration; parital obstruction of flow Tongue Base Retraction: Trace column of contrast between tongue base & post. pharyngeal wall Pharyngeal Residue: Trace residue within or on pharyngeal structures - Diagnosis/Impression Diagnosis: moderate oropharyngeal dysphagia (R13.12) Impression: Patient presents with moderate oropharyngeal dysphagia (R13.12). Oral phase primarily marked by prolonged, disorganized mastication and suboptimal lingual movement resulting in mild-moderate oral residue post deglutition. Pharyngeal phase primarily marked by delayed pharyngeal swallow timing resulting in suboptimal bolus location upon swallow onset and reduced laryngeal elevation and hyoid excursion. The patient aspirated on both thin liquids (silent aspiration) and nectar thick liquids. With nectar thick trial, pt aspirated liquid and made several attempts to cough to clear however coughing was ineffective at ejecting liquid. It is strongly advised patient follow recommendation for modified diet (moderately thick liquids and minced and moist textures) with consideration for alternative means of nutrition and hydration with disease progression. Continued skilled ST intervention recommended. - Recommendations Diet: Mechanical Soft Textures, Honey-thick Liquids Compensatory Strategies: Small Bites, Small Sips, Slow Rate, Alternate bites/solids and sips/liquids, Sitting upright, Remain sitting upright for 30 minutes after PO intake Supervision: 1:1 Close Supervision Recommend Repeat Modified Barium Swallow: Yes Comment: With increased symptoms or on annual basis. Need for Skilled Speech Therapy Services: Yes Education Completed: 1. Described result of evaluation., 2. Pt understands evaluation & agrees with goals and treatment plan. - Status Active ST Patient: Active - Contact Information [facility] Speech Therapy:: Kalie Bruce MA, CCC-ADDRESSOGRAPH OPERATOR [place] [phone] [email or web address]
== END ==
PROVIDERS: PCP Family Medicine; Referring Provider Psychiatry & Neurology Neurology; Visit Provider Psychiatry & Neurology Neurology
DX: G12.21 Amyotrophic lateral sclerosis (principal)
CPT/HCPCS: 74230; 92611

== ENCOUNTER 2020-09-10 15:29 | Emergency (ER) | payer OTHER, SELFPAY ==
[2020-08-19 10:36] VITALS: BMI 29.4
[2020-09-10 15:29] VITALS: BP 119/79; PULSE 119; RESP 16; TEMP 36.2; O2SAT 95; BMI 29.1
--- NOTE | 2020-09-10 16:26 | ED.VIS.GEN ---
History of Present Illness Chief Complaint: Cellulitis Narrative: Patient has bulbar palsy. 7 days ago she had surgery at the [facility], she had a PEG tube placed. Patient now presented with painful redness around her PEG site. No fever or chills. No chest pain or shortness of breath. She has been using the PEG tube. Pain is achy and moderate. 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 Smoking Status: Never smoker Review of Systems General: Denies: Fever Cardiovascular: Denies: Chest pain Respiratory: Denies: Dyspnea, Cough Gastrointestinal: Reports: Abdominal pain. Denies: Nausea Genitourinary: Denies: Dysuria Musculoskeletal: Denies: Myalgias Skin: Denies: Rash, Abscess Neurological: Denies: Headache Psych: Denies: Depression Endocrine: Denies: Polyuria Hematologic: Denies: Easy bruising, Easy bleeding Physical Exam Vital Signs/Narrative: Vital Signs Temp Pulse Resp BP Pulse Ox 09/10/20 15:29 97.1 F L 119 H 16 119/79 95 General: Well nourished, Well developed Head: Normocephalic ENT: Moist mucous membranes, - - Patient does have some voice difficulty this is chronic. Neck: Supple Cardiovascular: Regular rate, Regular rhythm Respiratory: No distress, CTA bilaterally Abdomen: - - Abdomen is soft otherwise nontender other than the PEG tube site and about 10 cm around on either side. There is erythema. There is also induration and when I press on the abdomen I cannot expectorate pus from around the abscess surrounding the PEG tube. Diagnostic/Tx/Re-eval - Medical Decision Making Patient has a postsurgical abscess and cellulitis. I gave her analgesics to give her antibiotics I will check a CT and blood work as well as blood cultures patient will need to be transferred to [facility] where her surgery was. ED Disposition - Plan for ED Patient: Disposition: [facility] - Main Diagnosis: Postoperative abscess Referrals: Elissa Alanis MD [Primary Care Provider] -
[2020-09-10 16:31] VITALS: BP 109/72; PULSE 90; RESP 18; TEMP 36.9; O2SAT 92
[2020-09-10 16:39] LABS: Absolute Lymphocyte Count 1.34 X10^3/uL (0.83-4.51); Basophil# 0.03 X10^3/uL; Basophil% 0.3 % (0-1); Eosinophil# 0.09 X10^3/uL; Eosinophils% 0.8 % (0-5); Hemoglobin 12.3 g/dL (12.0-15.0); Lymphocyte # 1.34 X10^3/ul (4.0); Lymphocyte % 11.8 % (19-41); Mean Corp Hgb Conc 32.4 g/dL (32-36); Mean Corpuscular Hgb 29.8 pg (27.0-32.0); Mean Platelet Vol. 10.2 fl (6.2-12.0); Monocyte% 7.9 % (0-10); NRBC Flagged by Analyzer 0 % (0-5); Neutrophil # 8.97 X10^3/uL (2.7-7.7); Neutrophil % 78.8 % (47-70); Platelet Count 184 K/mm3 (150-450); RBC Distribution Width CV 12.1 % (11.6-14.6); RBC Distribution Width SD 40.4 fl (35.1-43.9); Red Blood Count 4.13 M/mm3 (4.2-5.4); White Blood Count 11.4 K/mm3 (4.4-11.0)
[2020-09-10] MEDS: Ondansetron 4 MG/2 ML Vial IV (16:52)
[2020-09-10] MEDS: Morphine 4 MG/ML Syringe IV (16:52)
[2020-09-10 16:57] LABS: ALB/GLOB Ratio 0.9 RATIO (0.9-2.4); AST(SGOT) 12 U/L (15-37); Alanine Aminotransfer ALT/SGPT 21 U/L (13-56); Albumin, Serum 3.8 g/dL (3.2-5.0); Alkaline Phosphatase 113 U/L (45-117); Anion Gap 5 (5-15); BUN 12 mg/dL (7-18); BUN/Creat Ratio 17.5 RATIO (10-20); Calcium,Total 9.6 mg/dL (8.5-10.1); Chloride 100 mmol/L (98-107); Creatinine, Serum 0.69 mg/dL (0.55-1.02); EST Glomerular Filtration Rate 92 mL/min (>60); Est Glom Filt Rate - Afr Amer 111 mL/min (>60); Estimated Creatinine Clearance 93.27 ml/min; Globulin 4.2 g/dL (2.2-4.2); Glucose 120 mg/dL (74-106); Potassium 3.7 mmol/L (3.5-5.1); Sodium Level 134 mmol/L (136-145)
[2020-09-10 17:29] VITALS: BP 110/68; PULSE 90; RESP 16; RESP 18; TEMP 37.2; O2SAT 92
--- NOTE | 2020-09-10 20:03 | ED.RN ---
report given to rodo at [facility]
== END 2020-09-10 19:10 | disposition short-term general hospital (02) ==
PROVIDERS: Emergency Provider Emergency Medicine; PCP Family Medicine
DX: K94.22 Gastrostomy infection (principal); Y83.9 Surgical procedure, unspecified as the cause of abnormal reaction of the patient, or of later complication, without mention of misadventure at the time of the procedure; Y92.9 Unspecified place or not applicable; G12.22 Progressive bulbar palsy; G12.21 Amyotrophic lateral sclerosis; I10 Essential (primary) hypertension; E78.00 Pure hypercholesterolemia, unspecified; Z79.82 Long term (current) use of aspirin; Z79.899 Other long term (current) drug therapy
CPT/HCPCS: 36415; 80053; 85025; 87040; 96365; 96367; 96375; 99285; J7040; A4216; J2405

== ENCOUNTER → 2020-09-30 15:43 | Outpatient (CLI) | payer OTHER, SELFPAY ==
[2020-09-10 15:29] VITALS: BMI 29.1
[2020-09-30 18:04] LABS: Absolute Lymphocyte Count 1.54 X10^3/uL (0.83-4.51); Absolute Neutrophil Count 3.6 X10^3/uL (2.0-7.7); Basophil# 0.05 X10^3/uL; Basophil% 0.8 % (0-1); Eosinophil# 0.23 X10^3/uL; Eosinophils% 3.9 % (0-5); Hematocrit 38.5 % (37-47); Hemoglobin 11.7 g/dL (12.0-15.0); Lymphocyte # 1.54 X10^3/ul (0.83-4.51); Lymphocyte % 26.1 % (19-41); Mean Corp Hgb Conc 30.4 g/dL (32-36); Mean Corpuscular Hgb 28.5 pg (27.0-32.0); Mean Corpuscular Volume 93.7 fL (81-99); Monocyte# 0.48 X10^3/uL; Monocyte% 8.1 % (0-10); NRBC Flagged by Analyzer 0 % (0-5); Neutrophil # 3.58 X10^3/uL (2.7-7.7); Neutrophil % 60.9 % (47-70); Platelet Count 231 K/mm3 (150-450); RBC Distribution Width SD 44.1 fl (35.1-43.9); Red Blood Count 4.11 M/mm3 (4.2-5.4); White Blood Count 5.9 K/mm3 (4.4-11.0)
[2020-09-30 18:31] LABS: ALB/GLOB Ratio 1.1 RATIO (0.9-2.4); AST(SGOT) 23 U/L (15-37); Alanine Aminotransfer ALT/SGPT 32 U/L (13-56); Albumin, Serum 4.1 g/dL (3.2-5.0); Alkaline Phosphatase 112 U/L (45-117); Anion Gap 5 (5-15); BUN 15 mg/dL (7-18); BUN/Creat Ratio 22.3 RATIO (10-20); Calcium,Total 9.7 mg/dL (8.5-10.1); Chloride 103 mmol/L (98-107); Creatinine, Serum 0.67 mg/dL (0.55-1.02); EST Glomerular Filtration Rate 94 mL/min (>60); Est Glom Filt Rate - Afr Amer 114 mL/min (>60); Globulin 3.7 g/dL (2.2-4.2); Glucose 99 mg/dL (74-106); Protein, Total 7.8 g/dL (6.4-8.2); Sodium Level 139 mmol/L (136-145); Thyroid Stim Hormone (TSH) 0.86 uIU/mL (0.358-3.74)
== END ==
PROVIDERS: PCP Family Medicine; Referring Provider Family Medicine; Visit Provider Family Medicine
DX: R00.0 Tachycardia, unspecified (principal)
CPT/HCPCS: 36415; 80053; 84443; 85025

== ENCOUNTER 2020-10-07 03:39 | Emergency (ER) | payer OTHER, SELFPAY ==
[2020-10-07 03:40] VITALS: BP 123/81; PULSE 96; RESP 20; TEMP 36.4; O2SAT 96; BMI 29.4
--- NOTE | 2020-10-07 03:40 | ED.RN ---
CALLED FOR EKG PER RN REQUEST, PULLED OLD EKGS FOR
--- NOTE | 2020-10-07 03:44 | EKG12_ITS ---
Test Reason : CP Blood Pressure : / mmHG Vent. Rate : 098 BPM Atrial Rate : 098 BPM P-R Int : 160 ms QRS Dur : 088 ms QT Int : 368 ms P-R-T Axes : 036 002 036 degrees QTc Int : 469 ms Normal sinus rhythm Normal ECG Confirmed by DANYA HASSAN MD ([id number]), photo editor KATYA BOWDEN ([id number]) on 10/07/2020 9:29:54 AM Referred By: JAMAAL Confirmed By:ADNYA HASSAN MD
--- NOTE | 2020-10-07 03:46 | ED.VIS.CHEST ---
HPI History of Present Illness Chief Complaint: Chest Pain Informant: patient and spouse/S.O. Limited: language barrier (Patient nonverbal secondary to ALS) Onset/Context/Timing Onset: Yesterday Activity at onset: gradual Timing: Continuous Quality: Positive for Aching and Burning Location: Substernal Current Severity: Moderate Maximum Severity: Moderate Worsened By: Nothing Relieved By: Nothing Associated Symptoms: Positive for Nausea and Acid Reflux Narrative Narrative: The patient is a 65-year-old female with medical history significant for high cholesterol and ALS who is nonverbal secondary to ALS the presents to the emergency department chest pain. gives most of the history. Yesterday she was complaining of some pain in the posterior neck that seem to wrap around into her jaws. He states that she has had significant change in her ability to chew recently and thought that it may have been muscular. However, overnight, she began to have bandlike pain across her upper chest. She does have history of GERD, but with home remedies nothing seem to improve it. She denies being short of breath. She denies being nauseated. She is not had fever or chills. She is otherwise been in her normal state of health. [facility] Medical History Diabetes HTN (hypertension) Knee pain Long-term use of high-risk medication Pure hypercholesterolemia Sinus tachycardia Home Medications acidophilus-pectin, citrus 1 tab PO DAILY 06/11/13 [History Last Taken Unknown] calcium carbonate-vitamin D3 1 tab PO DAILY@0800 06/11/13 [History Last Taken Unknown] multivitamin with folic acid 1 tab PO DAILY 06/11/13 [History Last Taken Unknown] apremilast 30 mg tablet 30 mg PO BID 07/12/19 [History Last Taken Unknown] aspirin 81 mg tablet,delayed release 81 mg PO DAILY 07/12/19 [History Last Taken Unknown] trazodone 50 mg tablet 50 mg PO QHS PRN 07/12/19 [History Last Taken Unknown] losartan 25 mg tablet 25 mg PO QDAY #90 tab 08/19/20 [Rx Last Taken Unknown] riluzole 50 mg tablet 50 mg PO Q12H 08/19/20 [History Last Taken Unknown] atorvastatin 40 mg tablet 40 mg PO QHS #90 tab 09/21/20 [Rx Last Taken Unknown] metformin 1,000 mg PO DAILY 10/07/20 [History Last Taken Unknown] Allergy/AdvReac Type Severity Reaction Status Date / Time lisinopril AdvReac cough Verified 10/07/20 03:47 Family History Other Colon cancer High triglycerides Surgical History H/O thumb surgery H/O total hysterectomy History of bunionectomy of both great toes Social History Smoking Status: Never smoker alcohol intake: never ROS ROS ED Constitutional Constitutional ED: Denies chills or fever(s) Eyes Eyes: Denies blurry vision or change in vision ENT ENT ED: Denies ear pain or sore throat Cardiovascular Cardiovascular: Reports chest pain; Denies palpitations Respiratory/Chest Respiratory/Chest: Reports dyspnea; Denies cough or dyspnea on exertion Gastrointestinal Gastrointestinal: Reports nausea; Denies abdominal pain or vomiting Genitourinary Genitourinary ED: Denies dysuria or urinary frequency Musculoskeletal Musculoskeletal: Denies arthralgias or myalgias Integumentary Denies rash Neurologic Neurologic: Denies headache(s) or paresthesias Psychiatric Psychiatric: Denies anxiety or depression Endocrine Endocrinology: Denies polydipsia or polyuria Allergic/Immunologic Allergic/Immunologic ED: Denies urticaria EXAM Physical Exam Const Vital Signs: 10/07/20 03:40 10/07/20 03:44 10/07/20 03:51 Temperature 97.6 F L Temperature Source Temporal Pulse Rate 96 Respiratory Rate 20 H Respiratory Effort Normal Blood Pressure 123/81 H Blood Pressure Mean 95 Pulse Ox 96 95 Oxygen Delivery Method Room Air Room Air Positive well nourished and well developed General Appearance ED: well developed HEENT Reports normocephalic, head/scalp atraumatic and moist mucous membranes normocephalic and atraumatic Eyes PERRL and EOMs intact bilaterally Neck no lymphadenopathy and supple General: Negative for tenderness Chest Wall inspection of chest normal Resp normal respiratory effort and clear to auscultation bilaterally Cardio regular rate, regular rhythm and no murmurs GI normal to inspection, nondistended, normoactive bowel sounds Palpation: Negative for tender, guarding or rebound tenderness present Back/Spine no CVA tenderness Cervical Spine: Negative for cervical spine tenderness Thoracic Spine / Upper Back: Negative for thoracic spinal tenderness Extremity normal to inspection General Extremety ED: Negative for tenderness Neuro oriented x3 and CN's II-XII intact bilaterally Neuro Narrative: No focal deficits appreciated. Sensorium / Orientation: alert Motor Exam: general weakness Psych mental status grossly normal Skin no rashes or lesions noted, no wounds and skin turgor normal Heart Score History: Slightly/Non-Suspicious ECG: Normal Age: >45 - <65 years Risk Factors: 1 or 2 Risk Factors Troponin: </= Normal Limit Score: 2 MDM MDM MDM Narrative Medical decision making narrative: The patient presents with chest pain. It does seem as if there is a gastric component to it. EKG was obtained on patient arrival. It was sinus rhythm, rate of 98, normal axis and intervals. There was no acute ischemic change. It was unchanged from prior. Patient received aspirin. She was still having some pain. Patient was given GI cocktail. She has had almost total resolution of her symptoms. Chest x-ray was reviewed and shows no evidence of volume overload, focal infiltrative process, or enlarged cardiac silhouette. I do feel the patient's ALS, along with her motor dysfunction with swallowing, that she is at high risk for GERD. She has a very low heart score. She has a normal EKG. She has had pain for 6 hours. After long discussion and shared decision making, she and her are comfortable going home. I do feel that this is reasonable. The patient will be discharged. Impression 1. Atypical chest pain Lab Data Attestation: I reviewed the patient's lab results. Labs: Laboratory Results - last 24 hr 10/07/20 10/07/20 03:40 03:40 WBC 8.3 RBC 4.06 L Hgb 12.0 Hct 37.6 MCV 92.6 MCH 29.6 MCHC 31.9 L RDW Std Deviation 43.2 RDW Coeff of Kenisha 12.7 Plt Count 165 MPV 10.4 Immature Gran % (Auto) 0.200 Neut % (Auto) 72.8 H Lymph % (Auto) 15.4 L Ashley % (Auto) 8.8 Eos % (Auto) 2.4 Baso % (Auto) 0.4 Absolute Neuts (auto) 6.0 Absolute Lymphs (auto) 1.28 Nucleated RBC % 0 Sodium 137 Potassium 3.7 Chloride 101 Carbon Dioxide 30.0 Anion Gap 6 BUN 13 Creatinine 0.70 Estim Creat Clear Calc 91.94 Est GFR (MDRD) Af Amer 108 Est GFR (MDRD) Non-Af 89 BUN/Creatinine Ratio 18.5 Glucose 130 H Calcium 9.3 Magnesium 2.1 Troponin I < 0.015 Radiography Chest X-Ray - ED: 1 View, Read by ED Physician, Normal, Heart, Lungs, Mediastinum, Bony Structures and No Acute Disease Diagnostic Testing: Radiology Impression Chest X-Ray 10/07/20 04:15 IMPRESSION: Normal x-ray examination of the chest. Electronically Signed: William Ornelas MD at 4:31 EDT , Service support , Discharge Plan Triage Chief Complaint: Chest Pain ED Provider: Alonso Mims Dx/Rx/DC Orders Instructions: ED Chest Pain, Noncardiac Prescriptions: No Action aspirin 81 mg tablet,delayed release (DR/EC) 81 mg PO DAILY RF: 0 trazodone 50 mg tablet 50 mg PO QHS PRN (Reason: Sleep) RF: 0 apremilast 30 mg tablet 30 mg PO BID RF: 0 riluzole 50 mg tablet 50 mg PO Q12H RF: 0 losartan 25 mg tablet 25 mg PO QDAY Qty: 90 RF: 3 acidophilus-pectin, citrus 1 TABLET tablet 1 tab PO DAILY RF: 0 multivitamin with folic acid 1 TABLET tablet 1 tab PO DAILY RF: 0 calcium carbonate-vitamin D3 1 TAB tablet 1 tab PO DAILY@0800 RF: 0 metformin 1,000 mg Tablet 1,000 mg PO DAILY RF: 0 atorvastatin 40 mg tablet 40 mg PO QHS Qty: 90 RF: 3 Primary Care Provider: Elissa Alanis Referrals: Elissa Alanis MD [Primary Care Provider] -
[2020-10-07 03:51] VITALS: O2SAT 95
[2020-10-07 03:51] LABS: Absolute Lymphocyte Count 1.28 X10^3/uL (0.83-4.51); Basophil# 0.03 X10^3/uL; Basophil% 0.4 % (0-1); Eosinophils% 2.4 % (0-5); Hematocrit 37.6 % (37-47); Lymphocyte # 1.28 X10^3/ul (0.83-4.51); Lymphocyte % 15.4 % (19-41); Mean Corp Hgb Conc 31.9 g/dL (32-36); Mean Corpuscular Hgb 29.6 pg (27.0-32.0); Mean Corpuscular Volume 92.6 fL (81-99); Mean Platelet Vol. 10.4 fl (6.2-12.0); Monocyte# 0.73 X10^3/uL; Monocyte% 8.8 % (0-10); NRBC Flagged by Analyzer 0 % (0-5); Neutrophil # 6.03 X10^3/uL (2.7-7.7); Neutrophil % 72.8 % (47-70); Platelet Count 165 K/mm3 (150-450); RBC Distribution Width CV 12.7 % (11.6-14.6); RBC Distribution Width SD 43.2 fl (35.1-43.9); Red Blood Count 4.06 M/mm3 (4.2-5.4); White Blood Count 8.3 K/mm3 (4.4-11.0)
[2020-10-07 04:08] LABS: Anion Gap 6 (5-15); BUN 13 mg/dL (7-18); BUN/Creat Ratio 18.5 RATIO (10-20); Calcium,Total 9.3 mg/dL (8.5-10.1); Chloride 101 mmol/L (98-107); EST Glomerular Filtration Rate 89 mL/min (>60); Est Glom Filt Rate - Afr Amer 108 mL/min (>60); Estimated Creatinine Clearance 91.94 ml/min; Glucose 130 mg/dL (74-106); Magnesium 2.1 mg/dL (1.6-2.6); Potassium 3.7 mmol/L (3.5-5.1); Sodium Level 137 mmol/L (136-145)
[2020-10-07] MEDS: Mag Hydrox/Al Hydrox/Simeth 30 ML UDC PO (04:08)
[2020-10-07] MEDS: 0.9% Normal Saline 1,000 ML 150 ML IV (04:08)
[2020-10-07] MEDS: Aspirin 81 MG TAB.CHEW 324 MG PO (04:08)
--- NOTE | 2020-10-07 04:15 | RAD_ITS ---
STUDY: X-RAY CHEST REASON FOR EXAM: Female, 65 years old. Neck and jaw pain radiating to chest. TECHNIQUE: AP portable chest. COMPARISON: July 02, 2018. FINDINGS: No focal infiltrates or effusions. No pneumothorax. Normal size heart. Normal mediastinum and krysten. Normal visualized pulmonary arteries. Normal visualized aortic arch and descending thoracic aorta. Normal visualized thoracic spine. Normal visualized ribs, clavicles, and shoulders. There is no demonstrated abnormality of the visualized soft tissue structures of the upper abdomen. RAD/Chest 1 View (Portable) IMPRESSION: Normal x-ray examination of the chest. Electronically Signed: William Ornelas MD at 4:31 EDT , Service support ,
[2020-10-07 04:41] VITALS: BP 122/87; PULSE 101; RESP 16; O2SAT 99
== END 2020-10-07 04:46 | disposition short-term general hospital (02) ==
LOC: ED 03:52
PROVIDERS: Emergency Provider Emergency Medicine; PCP Family Medicine
DX: R07.89 Other chest pain (principal); I10 Essential (primary) hypertension; E11.9 Type 2 diabetes mellitus without complications; E78.00 Pure hypercholesterolemia, unspecified; Z79.84 Long term (current) use of oral hypoglycemic drugs; Z79.82 Long term (current) use of aspirin; Z79.899 Other long term (current) drug therapy
CPT/HCPCS: 71045; 80048; 83735; 84484; 85025; 93005; 96360; 99285; J7030; A4216

== ENCOUNTER → 2020-11-25 | Outpatient (CLI) | payer OTHER, SELFPAY ==
[2020-10-14 10:33] VITALS: BMI 29.2
== END | disposition home or self-care (01) ==
LOC: LABSPEC 15:02
PROVIDERS: PCP Family Medicine; Visit Provider Family Medicine
DX: N39.0 Urinary tract infection, site not specified (principal)
CPT/HCPCS: 87077; 87086; 87088; 87186

== ENCOUNTER → 2021-02-16 10:31 | Outpatient (CLI) | payer OTHER, SELFPAY ==
[2021-02-16 12:09] LABS: Absolute Lymphocyte Count 1.69 X10^3/uL (0.83-4.51); Absolute Neutrophil Count 6.5 X10^3/uL (2.0-7.7); Basophil# 0.05 X10^3/uL; Basophil% 0.5 % (0-1); Eosinophil# 0.08 X10^3/uL; Eosinophils% 0.9 % (0-5); Hematocrit 39.1 % (37-47); Hemoglobin 12.9 g/dL (12.0-15.0); Lymphocyte # 1.69 X10^3/ul (0.83-4.51); Lymphocyte % 18.5 % (19-41); Mean Corpuscular Hgb 30.1 pg (27.0-32.0); Mean Corpuscular Volume 91.1 fL (81-99); Mean Platelet Vol. 10.8 fl (6.2-12.0); Monocyte# 0.78 X10^3/uL; Monocyte% 8.6 % (0-10); NRBC Flagged by Analyzer 0 % (0-5); Neutrophil # 6.48 X10^3/uL (2.7-7.7); Neutrophil % 71.1 % (47-70); Platelet Count 231 K/mm3 (150-450); RBC Distribution Width CV 12.6 % (11.6-14.6); RBC Distribution Width SD 41.5 fl (35.1-43.9); Red Blood Count 4.29 M/mm3 (4.2-5.4); White Blood Count 9.1 K/mm3 (4.4-11.0)
[2021-02-16 12:26] LABS: AST(SGOT) 16 U/L (15-37); Alanine Aminotransfer ALT/SGPT 28 U/L (13-56); Albumin, Serum 3.9 g/dL (3.2-5.0); Alkaline Phosphatase 112 U/L (45-117); Anion Gap 5 (5-15); BUN 19 mg/dL (7-18); BUN/Creat Ratio 26.8 RATIO (10-20); Calcium,Total 9.7 mg/dL (8.5-10.1); Chloride 102 mmol/L (98-107); Creatinine, Serum 0.71 mg/dL (0.55-1.02); EST Glomerular Filtration Rate 88 mL/min (>60); Est Glom Filt Rate - Afr Amer 107 mL/min (>60); Glucose 159 mg/dL (74-106); Potassium 4.1 mmol/L (3.5-5.1); Protein, Total 7.9 g/dL (6.4-8.2); Sodium Level 137 mmol/L (136-145)
== END ==
PROVIDERS: PCP Family Medicine; Referring Provider Internal Medicine Rheumatology; Visit Provider Internal Medicine Rheumatology
DX: L40.59 Other psoriatic arthropathy (principal); L40.8 Other psoriasis; K76.0 Fatty (change of) liver, not elsewhere classified; G12.21 Amyotrophic lateral sclerosis; M21.40 Flat foot [pes planus] (acquired), unspecified foot; K21.9 Gastro-esophageal reflux disease without esophagitis; E11.9 Type 2 diabetes mellitus without complications; F32.89 Other specified depressive episodes; E78.5 Hyperlipidemia, unspecified; Z79.899 Other long term (current) drug therapy
CPT/HCPCS: 36415; 80053; 85025

== ENCOUNTER → 2021-02-23 10:51 | Outpatient (CLI) | payer OTHER, SELFPAY ==
--- NOTE | 2021-02-23 10:54 | RAD_ITS ---
STUDY: X-RAY - RIGHT FOOT CLINICAL: Female, 65 years old. Pain and stiffness TECHNIQUE: 3 view(s) of the foot. COMPARISON: None. FINDINGS: Normal talus and tarsal bones. Prominent calcaneal spurs Normal visualized subtalar, talonavicular, calcaneocuboid, tarsal and tarsometatarsal articulations. Contour irregularity in the first metatarsal suggests an old healed fracture. No acute fracture or acute metatarsal abnormality Normal metatarsophalangeal joint of the great toe. Normal tibial and fibular sesamoid bones. Normal interphalangeal joint of the great toe. Normal phalanges of the great toe. Normal second through fifth metatarsophalangeal joints. Normal interphalangeal joints and phalanges of the lesser toes. The soft tissue structures are unremarkable. RAD/Foot min 3 Views IMPRESSION: Calcaneal spurs, no demonstrated acute fracture or suspicious osseous lesion Electronically Signed: Tex Mcdaniel MD at 11:35 EDT , Service support ,
== END ==
PROVIDERS: PCP Family Medicine; Referring Provider Family Medicine; Visit Provider Family Medicine
DX: M77.31 Calcaneal spur, right foot (principal)
CPT/HCPCS: 73630

== ENCOUNTER 2021-08-09 11:24 | Outpatient (CLI) | payer OTHER, SELFPAY ==
[2021-08-09 15:21] LABS: Absolute Neutrophil Count 3.4 X10^3/uL (2.0-7.7); Basophil# 0.03 X10^3/uL; Basophil% 0.5 % (0-1); Eosinophil# 0.14 X10^3/uL; Eosinophils% 2.5 % (0-5); Hematocrit 35.1 % (37-47); Hemoglobin 11.5 g/dL (12.0-15.0); Lymphocyte % 26.8 % (19-41); Mean Corp Hgb Conc 32.8 g/dL (32-36); Mean Corpuscular Hgb 30.4 pg (27.0-32.0); Mean Corpuscular Volume 92.9 fL (81-99); Monocyte# 0.52 X10^3/uL; Monocyte% 9.3 % (0-10); NRBC Flagged by Analyzer 0 % (0-5); Neutrophil # 3.39 X10^3/uL (2.7-7.7); Neutrophil % 60.7 % (47-70); Platelet Count 164 K/mm3 (150-450); RBC Distribution Width CV 12.2 % (11.6-14.6); RBC Distribution Width SD 41.8 fl (35.1-43.9); Red Blood Count 3.78 M/mm3 (4.2-5.4); White Blood Count 5.6 K/mm3 (4.4-11.0)
[2021-08-09 15:40] LABS: ALB/GLOB Ratio 1.1 RATIO (0.9-2.4); AST(SGOT) 22 U/L (15-37); Alanine Aminotransfer ALT/SGPT 32 U/L (13-56); Albumin, Serum 3.9 g/dL (3.2-5.0); Alkaline Phosphatase 100 U/L (45-117); Anion Gap 2 (5-15); BUN 21 mg/dL (7-18); BUN/Creat Ratio 36.3 RATIO (10-20); Calcium,Total 9.2 mg/dL (8.5-10.1); Chloride 101 mmol/L (98-107); Creatinine, Serum 0.58 mg/dL (0.55-1.02); EST Glomerular Filtration Rate 111 mL/min (>60); Est Glom Filt Rate - Afr Amer 135 mL/min (>60); Globulin 3.6 g/dL (2.2-4.2); Glucose 119 mg/dL (74-106); Potassium 4.2 mmol/L (3.5-5.1); Protein, Total 7.5 g/dL (6.4-8.2); Sodium Level 138 mmol/L (136-145)
== END 2021-08-09 23:59 | disposition home or self-care (01) ==
LOC: MTLAB 11:28
PROVIDERS: PCP Family Medicine; Referring Provider Internal Medicine Rheumatology; Visit Provider Internal Medicine Rheumatology
DX: L40.59 Other psoriatic arthropathy (principal); G12.21 Amyotrophic lateral sclerosis; L40.8 Other psoriasis; K76.0 Fatty (change of) liver, not elsewhere classified; M21.40 Flat foot [pes planus] (acquired), unspecified foot; Z79.899 Other long term (current) drug therapy
CPT/HCPCS: 36415; 80053; 85025

== ENCOUNTER 2021-09-08 12:48 | Outpatient (CLI) | payer OTHER, SELFPAY ==
--- NOTE | 2021-09-08 12:50 | BI_ITS ---
MAMMOGRAPHY - BILATERAL SCREENING REASON FOR EXAM: Female, 66 years old. Routine annual screening examination. PERTINENT HISTORY: Non-contributory. TECHNIQUE: Digital bilateral breast flakito (3D mammographic acquisition) in the CC and MLO projections. 2-D mediolateral oblique (MLO) and craniocaudad (CC) views of both breasts were obtained. CAD: Full Field Digital Mammography with Computer Added Detection was performed. COMPARISON: Comparison is made with prior examination dated 07/16/2020 and 04/04/2019. FINDINGS: Breast Composition: There are scattered areas of fibroglandular density. There are no dominant masses or suspicious calcifications. Stable benign-appearing bilateral axillary lymph nodes. A tissue clip marker is seen in the deep upper slightly lateral aspect of the right breast. No other significant abnormalities are identified. There has been no significant change since the prior study. BI/SCRN MAMM (CAD)W/FLAKITO BILAT IMPRESSION: Stable bilateral screening mammogram. Yearly follow-up mammogram recommended. (A) ASSESSMENT CATEGORY: BIRADS Category 2: Benign. A letter regarding these results will be sent to the patient by the facility within 30 days. Approximately 10% of breast cancers are not detected by mammography. A normal mammogram should not delay biopsy of a clinically suspicious abnormality. [id number] Electronically Signed: Pawan Leong MD at 13:35 EDT ,
== END 2021-09-08 23:59 | disposition home or self-care (01) ==
LOC: OPBI 12:49
PROVIDERS: PCP Family Medicine; Visit Provider Family Medicine
DX: Z12.31 Encounter for screening mammogram for malignant neoplasm of breast (principal)
CPT/HCPCS: 77063; 77067

== ENCOUNTER → 2021-11-29 | Outpatient (CLI) | payer MEDICARE, OTHER, SELFPAY ==
[2021-11-29 13:05] LABS: AST(SGOT) 46 U/L (15-37); Alanine Aminotransfer ALT/SGPT 90 U/L (13-56); Albumin, Serum 4.1 g/dL (3.2-5.0); Alkaline Phosphatase 88 U/L (45-117); Bilirubin, Direct 0.17 mg/dL (0.00-0.30); Cholesterol 106 mg/dL (200); Globulin 3.5 g/dL (2.2-4.2); High Density Lipoprotein 39 mg/dL; Protein, Total 7.6 g/dL (6.4-8.2); Triglycerides 144 mg/dL; Very Low Density Lipoprotein 29 mg/dL (5-40)
== END | disposition home or self-care (01) ==
PROVIDERS: PCP Family Medicine; Referring Provider Internal Medicine Cardiovascular Disease; Visit Provider Internal Medicine Cardiovascular Disease
DX: E78.00 Pure hypercholesterolemia, unspecified (principal)
CPT/HCPCS: 36415; 80061; 80076

== ENCOUNTER 2022-01-11 20:43 | Emergency (ER) | payer MEDICARE, OTHER, SELFPAY ==
[2022-01-11 20:45] VITALS: BP 132/82; PULSE 72; RESP 16; TEMP 36.4; O2SAT 98; BMI 25.1
--- NOTE | 2022-01-11 21:28 | ED.VIS.FALL ---
HPI HPI - Fall History of Present Illness Chief Complaint: Fall Detail of Chief Complaint: Striking her forehead and face against a dresser Informant: patient and spouse/S.O. Occured/Mechanism Occurred: Today Mechanism/Context: Yes trip Usually ambulates: Without assistance Pain/Injury Pain Location: head and face Quality of Pain: Dull and Aching Current Severity: Mild Maximum Severity: Mild Associated Symptoms Associated Symptoms: Negative for Parasthesias, Weakness, Loss of function, Inability to ambulate, Loss of consciousness or Amnesia Narrative Narrative: 66-year-old female history of ALS, diabetes, hypertension. She was at home she was walking along her bed and tripped over the bed spread. When she fell she fell forward striking her forehead nose and right side of her face against a dresser. heard her fall and ran into her room immediately. She had no LOC. She is on no blood thinners. She denies any neck, back, chest or abdominal pain. She denies any injury to her upper or lower extremities. Prior similar symptoms: No Recent Illness/Hospitalization: No PFSH PFSH Medical History ALS (amyotrophic lateral sclerosis) Arthritis Cellulitis Chronic neck and back pain Diabetes Hemorrhoids History of cellulitis HTN (hypertension) Knee pain Limb weakness Long-term use of high-risk medication Pure hypercholesterolemia Severe headache Shoulder pain Sinus tachycardia SOB (shortness of breath) Home Medications acidophilus 25 million cell-pectin, citrus 100 mg tablet 1 tab PO DAILY 06/11/13 [History Last Taken Unknown] multivitamin with folic acid 400 mcg tablet 1 tab PO DAILY 06/11/13 [History Last Taken Unknown] apremilast 30 mg tablet 30 mg PO BID 07/12/19 [History Last Taken Unknown] aspirin 81 mg tablet,delayed release 81 mg PO DAILY 07/12/19 [History Last Taken Unknown] trazodone 50 mg tablet 50 mg PO QHS PRN Sleep 07/12/19 [History Last Taken Unknown] losartan 25 mg tablet 25 mg PO QDAY #90 tabs 08/19/20 [Rx Last Taken Unknown] riluzole 50 mg tablet 50 mg PO Q12H 08/19/20 [History Last Taken Unknown] alpha lipoic acid 200 mg capsule 400 mg PO DAILY 10/14/20 [History Last Taken Unknown] duloxetine 60 mg capsule,delayed release 60 mg PO DAILY 10/14/20 [History Last Taken Unknown] glycopyrrolate 1 mg tablet 0.5 mg PO TID 10/14/20 [History Last Taken Unknown] nadolol 20 mg tablet 10 mg PO DAILY #1 TAB 10/30/20 [Rx Last Taken Unknown] atorvastatin 40 mg tablet 40 mg PO QHS #90 tabs 08/17/21 [Rx Last Taken Unknown] scopolamine base 1 mg over 3 days transdermal patch 1 patch topical Q3D 01/11/22 [History Last Taken Unknown] Allergy/AdvReac Type Severity Reaction Status Date / Time lisinopril AdvReac cough Verified 11/26/21 11:00 Family History Other Colon cancer High triglycerides Surgical History H/O thumb surgery H/O total hysterectomy History of bunionectomy of both great toes S/P percutaneous endoscopic gastrostomy (PEG) tube placement Social History Smoking Status: Never smoker alcohol intake: never ROS ROS ED ROS Narrative Denies recent illness. Review of Systems ROS Unobtainable: Denies due to encephalopathy Constitutional Constitutional ED: Denies chills Eyes Eyes: Denies blurry vision ENT ENT ED: Denies ear pain Cardiovascular Cardiovascular: Denies chest pain Respiratory/Chest Respiratory/Chest: Denies cough Gastrointestinal Gastrointestinal: Denies abdominal pain Genitourinary Genitourinary ED: Denies dysuria Musculoskeletal Musculoskeletal: Denies arthralgias Integumentary Denies abscess Neurologic Neurologic: Denies headache(s) Psychiatric Psychiatric: Denies anxiety Endocrine Endocrinology: Denies polydipsia Hematologic/Lymphatic Hematologic/Lymphatic: Denies easy bleeding Allergic/Immunologic Allergic/Immunologic ED: Reports mouth swelling EXAM Physical Exam Narrative Exam Narrative: 66-year-old no acute distress. Vital signs stable afebrile. at bedside. H EENT exam pupils round react light expressions are intact. She has bruising hematoma to her mid forehead lateral to the right eye and cheek and tenderness to her nose. No bleeding. Peers round react light. Extra motions are intact. C-spine nontender. Trachea midline. Lungs are clear. Heart regular rhythm no murmur rate about 70. Abdomen soft nontender. No peritoneal signs. Chest wall nontender. Back and spine nontender. Pelvic girdle intact. Moving all 4 extremities. Nontender no deformity. Neurologically she is awake and alert. Following commands. Const Vital Signs: 01/11/22 20:45 01/11/22 20:58 Temperature 97.5 F L Temperature Source Temporal Pulse Rate 72 Respiratory Rate 16 Respiratory Effort Normal Non-Labored Respiratory Depth Normal Respiratory Pattern Normal Blood Pressure 132/82 H Blood Pressure Mean 98 Pulse Ox 98 Oxygen Delivery Method Room Air Room Air Positive well nourished and well developed; Negative for obese, cachectic, contractures or unkempt General Appearance ED: well developed and NAD; Negative for unkempt, cachectic or contractures Nutritional Appearance: Negative for cachectic or obese HEENT Reports normocephalic trauma, contusion, hematoma and tenderness; Negative for atraumatic Eyes PERRL and EOMs intact bilaterally General Eye ED: Negative for pale conjunctiva or scleral icterus Neck full ROM, no lymphadenopathy and supple General: Negative for tenderness Chest Wall inspection of chest normal and palpation of chest normal Resp normal respiratory effort, no retractions and clear to auscultation bilaterally Effort and Inspection: Negative for pain with movement Auscultation: Negative for rales, rhonchi or wheezes Cardio regular rate, regular rhythm, S1 normal heart sound, S2 normal heart sound and no murmurs Rate: Negative for bradycardia Rhythm: Negative for abnormal rhythm Bruits: Negative for other GI non-tender, non-distended and no masses Inspection: Negative for abdominal distention Auscultation: normoactive bowel sounds Palpation: soft; Negative for guarding Back/Spine no CVA tenderness General Back: Negative for CVA tenderness Cervical Spine: Negative for cervical spine tenderness Thoracic Spine / Upper Back: Negative for ROM limited or thoracic spinal tenderness Lumbar Spine / Lower Back: Negative for lumbar spinal tenderness or paraspinal muscle tenderness Neuro moves all extremities and no focal motor deficits [place] Coma Scale: document GCS findings Spontaneous Obeys Commands Oriented 15 Sensorium / Orientation: alert, oriented to person, oriented to place and oriented to time Motor Exam: strength 5/5 throughout Psych mental status grossly normal Appearance: Negative for unkempt Attitude: No agitated Mood & Affect: Negative for depressed or anxious Skin General Skin Exam: Negative for other Lesions: no lesions Rashes: no rashes Trauma: abrasion MDM MDM MDM Narrative Medical decision making narrative: 66-year-old tripped and fell at home. She has a history of ALS. Struck her head against a dresser and has a moderate sized hematoma to her forehead and a deformity to her nose. CAT scan of her brain and CT of her facial bones are being obtained. She did not want a thing for pain. Repeat exam patient doing well at 10:10 PM. I went over CAT scan results with her and her and she will be discharged to home. Radiography Diagnostic Testing: Clinical Impression(s) from Imaging Studies Brain CT 01/11/22 21:35 IMPRESSION: 1. No evidence of acute intracranial or calvarial abnormality or major interval change. 2. Soft tissue injury to the right frontal region. Electronically Signed: Cesar Fisher DO at 21:55 EDT Reading Location ID and State: [employer] / [employer] Tel [phone], Service support , Facial/Sinus 01/11/22 21:35 IMPRESSION: Soft tissue injury to the right frontal region. There is no evidence of facial bone fracture. Electronically Signed: Cesar Fisher DO at 21:57 EDT Reading Location ID and State: [employer] / [employer] Tel [phone], Service support , CAT scan of the facial bones showed soft tissue swelling and injury but no acute intracranial bleed nor any fractures. Read by the radiologist and reviewed by me. Discharge Plan Triage Chief Complaint: Fall ED Provider: Ismael Moore Dx/Rx/DC Orders Clinical Impression: Fall, Closed head injury, Facial contusion Instructions: ED Facial Contusion, ED Head Injury (Adult) Prescriptions: No Action aspirin 81 mg tablet,delayed release (DR/EC) 81 mg PO DAILY trazodone 50 mg tablet 50 mg PO QHS PRN (Reason: Sleep) apremilast 30 mg tablet 30 mg PO BID riluzole 50 mg tablet 50 mg PO Q12H Rx Instructions: must be taken on empty stomach; no food 1 hr after or 2-3 hrs before dose losartan 25 mg tablet 25 mg PO QDAY Qty: 90 3RF duloxetine 60 mg capsule,delayed release(DR/EC) 60 mg PO DAILY glycopyrrolate 1 mg tablet 0.5 mg PO TID alpha lipoic acid 200 mg capsule 400 mg PO DAILY acidophilus-pectin, citrus 1 TABLET tablet 1 tab PO DAILY multivitamin with folic acid 1 TABLET tablet 1 tab PO DAILY scopolamine base 1 mg over 3 days patch 3 day 1 patch topical Q3D nadolol 20 mg tablet 10 mg PO DAILY Qty: 1 0RF atorvastatin 40 mg tablet 40 mg PO QHS Qty: 90 3RF Primary Care Provider: Elissa Alanis Referrals: Elissa Alanis MD [Primary Care Provider] - 1 Week if not improving Activity Restrictions/Additional Instructions: Ice to your face to decrease pain and swelling. Motrin and Tylenol for pain and swelling. Follow-up if not proving. Disposition Disposition: Home, Self Care
--- NOTE | 2022-01-11 21:35 | CT_ITS ---
STUDY: CT BRAIN WITHOUT CONTRAST REASON FOR EXAM: Female, 66 years old. Fell and hit head on dresser. RADIATION DOSAGE (If Supplied By Facility): CTDIvol = ( 44.99 ) mGy, DLP = ( 829.85 ) mGycm TECHNIQUE: Transaxial CT imaging of the brain was performed without administration of intravenous contrast material. Individualized dose optimization techniques were used for this CT. COMPARISON: MRI of the brain, 05/14/2019. FINDINGS: There is a large soft tissue hematoma over the right frontal region. Normal calvarium. Normal size ventricles and extra-axial spaces for the patient''s age. Normal white matter tracts of the cerebral hemispheres. Normal basal ganglia and thalami. Normal brainstem. Normal cerebellum. There is no intracranial hemorrhage. There are no findings of an acute ischemic infarction. Normal visualized paranasal sinuses. CT/Brain/Head without Contrast IMPRESSION: 1. No evidence of acute intracranial or calvarial abnormality or major interval change. 2. Soft tissue injury to the right frontal region. Electronically Signed: Cesar Fisher DO at 21:55 EDT Reading Location ID and State: [facility] Tel [phone], Service support ,
--- NOTE | 2022-01-11 21:35 | CT_ITS ---
STUDY: CT FACIAL BONES WITHOUT CONTRAST REASON FOR EXAM: Female, 66 years old. Fell and hit face on dresser. RADIATION DOSAGE (If Supplied By Facility): CTDIvol = ( 29.38 ) mGy, DLP = ( 1374.06 ) mGycm TECHNIQUE: The patient was scanned in a multi detector CT scanner. Sagittal and coronal images were reconstructed. Individualized dose optimization techniques were used for this CT. COMPARISON: None. FINDINGS: There is a soft tissue hematoma the right frontal region extending downward to the bridge of nose. Normal orbital bradford and orbital contents. Normal nasal bones and anterior nasal spine. Normal facial bones. There is no demonstrated fracture. Normal visualized paranasal sinuses. CT/Sinus/Facial Bone IMPRESSION: Soft tissue injury to the right frontal region. There is no evidence of facial bone fracture. Electronically Signed: Cesar Fisher DO at 21:57 EDT ,
[2022-01-11 21:43] VITALS: RESP 16
[2022-01-11 22:10] VITALS: RESP 16
== END 2022-01-11 22:34 | disposition home or self-care (01) ==
PROVIDERS: Emergency Provider Emergency Medicine; PCP Family Medicine; Visit Provider Emergency Medicine
DX: S00.83XA Contusion of other part of head, initial encounter (principal); E11.9 Type 2 diabetes mellitus without complications; W01.190A Fall on same level from slipping, tripping and stumbling with subsequent striking against furniture, initial encounter; Y92.003 Bedroom of unspecified non-institutional (private) residence as the place of occurrence of the external cause; Y93.01 Activity, walking, marching and hiking; Y99.8 Other external cause status; I10 Essential (primary) hypertension; E78.00 Pure hypercholesterolemia, unspecified; Z79.82 Long term (current) use of aspirin; Z79.84 Long term (current) use of oral hypoglycemic drugs; Z79.899 Other long term (current) drug therapy
CPT/HCPCS: 70450; 70486; 99282

== ENCOUNTER → 2022-02-09 | Outpatient (CLI) | payer MEDICARE, OTHER, SELFPAY ==
[2022-02-09 15:55] LABS: Absolute Lymphocyte Count 1.52 X10^3/uL (0.83-4.51); Basophil# 0.03 X10^3/uL; Basophil% 0.5 % (0-1); Eosinophil# 0.12 X10^3/uL; Hematocrit 36.4 % (37-47); Hemoglobin 12.1 g/dL (12.0-15.0); Lymphocyte # 1.52 X10^3/ul (0.83-4.51); Lymphocyte % 24.8 % (19-41); Mean Corp Hgb Conc 33.2 g/dL (32-36); Mean Corpuscular Hgb 31.4 pg (27.0-32.0); Mean Corpuscular Volume 94.5 fL (81-99); Mean Platelet Vol. 12.6 fl (6.2-12.0); Monocyte% 8.1 % (0-10); NRBC Flagged by Analyzer 0 % (0-5); Neutrophil # 3.95 X10^3/uL (2.7-7.7); Neutrophil % 64.3 % (47-70); Platelet Count 160 K/mm3 (150-450); RBC Distribution Width CV 12.2 % (11.6-14.6); RBC Distribution Width SD 42.1 fl (35.1-43.9); Red Blood Count 3.85 M/mm3 (4.2-5.4); White Blood Count 6.1 K/mm3 (4.4-11.0)
[2022-02-09 16:01] LABS: ALB/GLOB Ratio 1.1 RATIO (0.9-2.4); AST(SGOT) 25 U/L (15-37); Alanine Aminotransfer ALT/SGPT 38 U/L (13-56); Albumin, Serum 3.9 g/dL (3.2-5.0); Alkaline Phosphatase 99 U/L (45-117); Anion Gap 5 (5-15); BUN 20 mg/dL (7-18); BUN/Creat Ratio 32.2 RATIO (10-20); Calcium,Total 9.5 mg/dL (8.5-10.1); Chloride 101 mmol/L (98-107); Creatinine, Serum 0.62 mg/dL (0.55-1.02); EST Glomerular Filtration Rate 102 mL/min (>60); Est Glom Filt Rate - Afr Amer 124 mL/min (>60); Globulin 3.7 g/dL (2.2-4.2); Glucose 131 mg/dL (74-106); Potassium 4.1 mmol/L (3.5-5.1); Protein, Total 7.6 g/dL (6.4-8.2); Sodium Level 140 mmol/L (136-145)
== END | disposition home or self-care (01) ==
PROVIDERS: PCP Family Medicine; Referring Provider Internal Medicine Rheumatology; Visit Provider Internal Medicine Rheumatology
DX: L40.59 Other psoriatic arthropathy (principal); G12.21 Amyotrophic lateral sclerosis; L40.8 Other psoriasis; K76.0 Fatty (change of) liver, not elsewhere classified; M21.40 Flat foot [pes planus] (acquired), unspecified foot; K21.9 Gastro-esophageal reflux disease without esophagitis; Z79.899 Other long term (current) drug therapy
CPT/HCPCS: 36415; 80053; 85025

== ENCOUNTER 2022-08-02 12:30 | Day surgery (SDC) | payer MEDICARE, OTHER, SELFPAY ==
[2022-08-02] VITALS (9 sets, daily range): BP systolic 113–131; BP diastolic 76–85; PULSE 78–88; RESP 15–20; TEMP 36.6; O2SAT 92–100; BMI 25.8
[2022-08-02] MEDS: Lactated Ringers 1,000 ML 15 ML IV (12:40)
--- NOTE | 2022-08-02 13:42 | PCM.HP.STD ---
HPI - General General Date of Admission: 08/02/22 Date of Service: 08/02/22 Chief Complaint: PEG malfunction HPI Narrative ALLEGRA LOWE, is a 67 F who presents for PEG tube evaluation and exchange. She has a past medical history of ALS and dementia. Almost all history is obtained from patient's . She has been having problems with her PEG tube is not able to do her feedings and also not been her med. As per her and she is not having any other problems at this time. [facility] Medical History (Updated 07/25/22 @ 11:53 by Shayy Rubio) ALS (amyotrophic lateral sclerosis) Anxiety Arthritis Arthritis BiPAP (biphasic positive airway pressure) dependence Cellulitis Chronic neck and back pain Depression Difficulty chewing Difficulty swallowing Hemorrhoids History of cellulitis History of stress test HTN (hypertension) Knee pain Limb weakness Long-term use of high-risk medication Non-smoker Pure hypercholesterolemia Severe headache Shoulder pain Sinus tachycardia Sleep apnea SOB (shortness of breath) Uses wheelchair Wears glasses Wears hearing aid Home Medications acidophilus 25 million cell-pectin, citrus 100 mg tablet 1 tab feeding tube DAILY 06/11/13 [History Last Taken Unknown] multivitamin with folic acid 400 mcg tablet 1 tab PO DAILY 06/11/13 [History Last Taken Unknown] aspirin 81 mg tablet,delayed release 81 mg feeding tube DAILY 07/12/19 [History Last Taken Unknown] trazodone 50 mg tablet 50 mg PO QHS PRN Sleep 07/12/19 [History Last Taken Unknown] riluzole 50 mg tablet 50 mg PO Q12H 08/19/20 [History Last Taken Unknown] duloxetine 60 mg capsule,delayed release 60 mg PO DAILY 10/14/20 [History Last Taken 08/02/22] glycopyrrolate 1 mg tablet 2 mg feeding tube TID 10/14/20 [History Last Taken Unknown] scopolamine base 1 mg over 3 days transdermal patch 1 patch topical Q3D PRN Nausea 01/11/22 [History Last Taken Unknown] baclofen 5 mg tablet 10 mg feeding tube DAILY 07/12/22 [History Last Taken 08/02/22] acetaminophen 325 mg capsule (Tylenol) 650 mg feeding tube Q6H PRN Pain 07/25/22 [History Last Taken Unknown] levocetirizine 5 mg tablet 5 mg feeding tube QHS 07/25/22 [History Last Taken Unknown] meloxicam 7.5 mg tablet 10 mg PO DAILY 07/25/22 [History Last Taken Unknown] nadolol 20 mg tablet (Corgard) 10 mg PO DAILY 07/25/22 [History Last Taken 08/02/22] omeprazole 20 mg capsule,delayed release 20 mg PO DAILY 08/02/22 [History Last Taken 08/02/22] Allergy/AdvReac Type Severity Reaction Status Date / Time lisinopril AdvReac cough Verified 08/02/22 12:55 Family History Other Colon cancer High triglycerides Surgical History H/O thumb surgery H/O total hysterectomy History of bunionectomy of both great toes S/P percutaneous endoscopic gastrostomy (PEG) tube placement Social History Smoking Status: Never smoker alcohol intake: never ROS Review of Systems ROS Unobtainable: other Constitutional Constitutional: Denies fatigue, fever(s), poor appetite, weight gain or weight loss ENT HEENT: Denies mouth lesions Cardiovascular Cardiovascular: Denies abdominal bloating, abdominal edema or abdominal pain Respiratory/Chest Respiratory/Chest: Denies change in mental status, change in phlegm color, chest congestion or chest tightness Gastrointestinal Gastrointestinal: Denies belching, bloating, change in bowel habits, change in stool character, chewing difficulty, coffee ground emesis, constipation, cramping, diarrhea, dyspepsia, dysphagia, early satiety, excessive flatus, fecal incontinence, heartburn, hematemesis, hematochezia, hemorrhoids, loose stools, melena, nausea, odynophagia, rectal bleeding, tenesmus, vomiting or weight changes Genitourinary Genitourinary: Denies abdominal discomfort, burning urination or itching Musculoskeletal Musculoskeletal: Reports as per HPI; Denies muscle weakness or myalgias Integumentary Integumentary: Denies jaundice Neurologic Neurologic: Denies lack of coordination or weakness Psychiatric Psychiatric: Denies confusion, depression, memory loss, mood swings, paranoia or suicidal ideation Endocrine Endocrinology: Denies systems reviewed and no addt'l complaints, except as documented Hematologic/Lymphatic Hematologic/Lymphatic: Denies anemia, easy bleeding, easy bruising or lymphadenopathy Allergic/Immunologic Allergic/Immunologic: Denies systems reviewed and no addt'l complaints, except as documented Vital Signs Vital Signs Vital Signs: 08/02/22 12:59 Temperature 97.9 F Temperature Source Temporal Pulse Rate 79 Respiratory Rate 20 H Blood Pressure 125/82 H Blood Pressure Mean 96 Blood Pressure Source Monitor Blood Pressure Position Semi-Fowlers Blood Pressure Location Right Arm Pulse Ox 95 Oxygen Delivery Method Room Air Weight Weight: 185 lb 3.013 oz Body Mass Index (BMI) 25.8 Physical Exam Const alert General Appearance: cooperative Orientation / Consciousness: oriented to person HEENT hearing grossly normal bilaterally Head and Scalp: normal to inspection Face and Sinus: face symmetric Nose: external nose normal Mouth: oral and palatal mucosa normal Eyes conjunctivae normal General Eye: normal appearance of both eyes Neck full ROM General: normal visual inspection Lymph Lymphatic: no lymphadenopathy noted Chest inspection of chest normal and palpation of chest normal Chest: symmetrical chest wall rise Resp normal respiratory effort Effort and Inspection: able to speak in complete sentences Cardio regular rate GI non-distended Percussion: normal to percussion Rectal Exam: deferred Neuro Speech: speech normal Gait (Neuro): normal gait Assessment & Plan Assessment/Plan (1) PEG tube malfunction: PLAN: She will undergo EGD with evaluation of upper GI tract and PEG for possible exchange. She was explained and her were explained alternatives, risk, benefits include not withstanding bleeding, infection, sepsis, perforation, need for emergent and . She have an ASA of 3.
--- NOTE | 2022-08-02 14:11 | OP.EGD_ITS ---
Patient Name: Jazmyne Pedraza Procedure Date: 08/02/2022 1:32 PM Date of : 1955 Age: 67 Procedure: Upper GI endoscopy Indications: Replace PEG tube due to malfunctioning gastrostomy tube Providers: Diony Mae DO Medicines: Monitored Anesthesia Care Patient Profile: This is a 67 year old female. Refer to note in patient chart for documentation of history and physical. Patient has symptoms of chronic dysphagia. Complications: No immediate complications. Procedure: Pre-Anesthesia Assessment: - Prior to the procedure, a History and Physical was performed, and patient medications and allergies were reviewed. The patient is competent. The risks and benefits of the procedure and the sedation options and risks were discussed with the patient. All questions were answered and informed consent was obtained. Patient identification and proposed procedure were verified by the physician in the pre-procedure area. Mental Status Examination: alert and oriented. Respiratory Examination: clear to auscultation. CV Examination: normal. Prophylactic Antibiotics: The patient does not require prophylactic antibiotics. Prior Anticoagulants: The patient has taken no previous anticoagulant or antiplatelet agents. ASA Grade Assessment: II - A patient with mild systemic disease. After reviewing the risks and benefits, the patient was deemed in satisfactory condition to undergo the procedure. The anesthesia plan was to use moderate sedation / analgesia (conscious sedation). Immediately prior to administration of medications, the patient was re-assessed for adequacy to receive sedatives. The heart rate, respiratory rate, oxygen saturations, blood pressure, adequacy of pulmonary ventilation, and response to care were monitored throughout the procedure. The physical status of the patient was re-assessed after the procedure. After obtaining informed consent, the endoscope was passed under direct vision. Throughout the procedure, the patient's blood pressure, pulse, and oxygen saturations were monitored continuously. The gastroscope was introduced through the mouth, and advanced to the second part of duodenum. The upper GI endoscopy was accomplished without difficulty. The patient tolerated the procedure well. Scope In: 1:50:50 PM Scope Out: 1:57:00 PM Total Procedure Duration Time 0 hours 6 minutes 10 seconds Findings: The examined esophagus was normal. There was evidence of an eroding gastrostomy tube present in the gastric body. This was characterized by erythema, friable mucosa and a hemorrhagic appearance. The PEG required removal because it was clogged. The PEG was removed under endoscopic vision. Removal was easily accomplished. A single localized, 5 mm non-bleeding erosion was found in the gastric body. There were no stigmata of recent bleeding. Biopsies were taken with a cold forceps for histology. The patient was placed in the supine position for PEG placement. The stomach was insufflated to appose gastric and abdominal bradford. A site was located in the body of the stomach with excellent transillumination for placement. The abdominal wall was marked and prepped in a sterile manner. The area was anesthetized with 1 mL of 0.5% lidocaine. The trocar needle was introduced through the abdominal wall and into the stomach under direct endoscopic view. A snare was introduced through the endoscope and opened in the gastric lumen. The guide wire was passed through the trocar and into the open snare. The snare was closed around the guide wire. The endoscope and snare were removed, pulling the wire out through the mouth. A skin incision was made at the site of needle insertion. The externally removable 20 Fr BASIL gastrostomy tube was lubricated. The G-tube was tied to the guide wire and pulled through the mouth and into the stomach. The trocar needle was removed, and the gastrostomy tube was pulled out from the stomach through the skin. The external bumper was attached to the gastrostomy tube, and the tube was cut to remove the guide wire. The final position of the gastrostomy tube was confirmed by relook endoscopy, and skin marking noted to be 4 cm at the external bumper. The final tension and compression of the abdominal wall by the PEG tube and external bumper were checked and revealed that the bumper was loose and lightly touching the skin. The feeding tube was capped, and the tube site cleaned and dressed. The first portion of the duodenum was normal. Impression: - Normal esophagus. - Eroding gastrostomy tube present characterized by erythema, friable mucosa and a hemorrhagic appearance. - Non-bleeding erosive gastropathy. Biopsied. - Normal first portion of the duodenum. - The PEG was removed under endoscopic vision because it was clogged. - An externally removable PEG placement was successfully completed. Recommendation: - Discharge patient to home. - Resume previous diet. - Continue present medications. Procedure Code(s): --- Professional --- 66926, Esophagogastroduodenoscopy, flexible, transoral; with directed placement of percutaneous gastrostomy tube 91320, 59,51, Esophagogastroduodenoscopy, flexible, transoral; with removal of foreign body(s) 30502, Esophagogastroduodenoscopy, flexible, transoral; with biopsy, single or multiple CPT copyright 2017 [employer]. All rights reserved. The codes documented in this report are preliminary and upon surfacer operator review may be revised to meet current compliance requirements. Diony Mae DO 08/02/2022 2:11:21 PM This report has been signed electronically. Number of Addenda: 0 Note Initiated On: 08/02/2022 1:32 PM
--- NOTE | 2022-08-02 14:12 | OP.CCLET_ITS ---
08/02/2022 Elissa Alanis [address] [place] [address] Re : Upper GI endoscopy procedure for Jazmyne [place] Dear Dr. Alanis This procedure was performed on Tuesday, August 02, 2022. My impressions and recommendations are as follows: Impressions : - Normal esophagus. - Eroding gastrostomy tube present characterized by erythema, friable mucosa and a hemorrhagic appearance. - Non-bleeding erosive gastropathy. Biopsied. - Normal first portion of the duodenum. - The PEG was removed under endoscopic vision because it was clogged. - An externally removable PEG placement was successfully completed. Recommendations : - Discharge patient to home. - Resume previous diet. - Continue present medications. My findings are described in the full procedure note, which is enclosed. If I can be of further assistance, please feel free to contact me at . Sincerely, Diony Mae, 08/02/2022 2:11:21 PM This report has been signed electronically.
--- NOTE | 2022-08-02 15:06 | SUR.PHASEI ---
IV D/C PRIOR TO PT D/C, WITHOUT REDNESS OR BLEEDING.
== END 2022-08-02 15:33 | disposition home or self-care (01) ==
LOC: EN 12:35 → AC 12:39
PROVIDERS: PCP Family Medicine; Referring Provider Family Medicine; Visit Provider Internal Medicine Gastroenterology
PROC: 0DJ08ZZ Inspection of Upper Intestinal Tract, Via Natural or Artificial Opening Endoscopic (ICD-10-PCS; CPT 43235; principal; 2022-08-02 13:25)
DX: K94.23 Gastrostomy malfunction (principal); G12.21 Amyotrophic lateral sclerosis; F03.90 Unspecified dementia, unspecified severity, without behavioral disturbance, psychotic disturbance, mood disturbance, and anxiety; G89.29 Other chronic pain; M54.2 Cervicalgia; F41.9 Anxiety disorder, unspecified; F32.A Depression, unspecified; G47.30 Sleep apnea, unspecified; Z79.899 Other long term (current) drug therapy; Z79.82 Long term (current) use of aspirin
CPT/HCPCS: 43762; 99282; J7120; J2405

== ENCOUNTER 2022-08-02 20:39 | Emergency (ER) | payer MEDICARE, OTHER, SELFPAY ==
[2022-08-02 20:41] VITALS: BP 114/77; PULSE 80; RESP 15; TEMP 36.1; O2SAT 95
--- NOTE | 2022-08-02 21:06 | EX.ED.DYSGE1 ---
HPI History of Present Illness Chief Complaint: Wound Check Narrative Narrative: Patient has a history of ALS, she is bedbound and her is her biomedical equipment specialist, her PEG tube was changed this morning and the patient does not have a clamp for the PEG tube. He is worried because every time he uses it there is some backflow. There are no other complaints. The PEG tube ports do have caps which work adequately. [facility] Medical History (Updated 08/02/22 @ 21:[address] Domingo Snow MD) ALS (amyotrophic lateral sclerosis) Anxiety Arthritis Arthritis BiPAP (biphasic positive airway pressure) dependence Cellulitis Chronic neck and back pain Depression Difficulty chewing Difficulty swallowing Hemorrhoids History of cellulitis History of stress test HTN (hypertension) Knee pain Limb weakness Long-term use of high-risk medication Non-smoker Pure hypercholesterolemia Severe headache Shoulder pain Sinus tachycardia Sleep apnea SOB (shortness of breath) Uses wheelchair Wears glasses Wears hearing aid Home Medications acidophilus 25 million cell-pectin, citrus 100 mg tablet 1 tab feeding tube DAILY 06/11/13 [History Last Taken Unknown] multivitamin with folic acid 400 mcg tablet 1 tab PO DAILY 06/11/13 [History Last Taken Unknown] aspirin 81 mg tablet,delayed release 81 mg feeding tube DAILY 07/12/19 [History Last Taken Unknown] trazodone 50 mg tablet 50 mg PO QHS PRN Sleep 07/12/19 [History Last Taken Unknown] riluzole 50 mg tablet 50 mg PO Q12H 08/19/20 [History Last Taken Unknown] duloxetine 60 mg capsule,delayed release 60 mg PO DAILY 10/14/20 [History Last Taken 08/02/22] glycopyrrolate 1 mg tablet 2 mg feeding tube TID 10/14/20 [History Last Taken Unknown] scopolamine base 1 mg over 3 days transdermal patch 1 patch topical Q3D PRN Nausea 01/11/22 [History Last Taken Unknown] baclofen 5 mg tablet 10 mg feeding tube DAILY 07/12/22 [History Last Taken 08/02/22] acetaminophen 325 mg capsule (Tylenol) 650 mg feeding tube Q6H PRN Pain 07/25/22 [History Last Taken Unknown] levocetirizine 5 mg tablet 5 mg feeding tube QHS 07/25/22 [History Last Taken Unknown] meloxicam 7.5 mg tablet 10 mg PO DAILY 07/25/22 [History Last Taken Unknown] nadolol 20 mg tablet (Corgard) 10 mg PO DAILY 07/25/22 [History Last Taken 08/02/22] omeprazole 20 mg capsule,delayed release 20 mg PO DAILY 08/02/22 [History Last Taken 08/02/22] Allergy/AdvReac Type Severity Reaction Status Date / Time lisinopril AdvReac cough Verified 08/02/22 20:47 Family History Other Colon cancer High triglycerides Surgical History H/O thumb surgery H/O total hysterectomy History of bunionectomy of both great toes S/P percutaneous endoscopic gastrostomy (PEG) tube placement Social History Smoking Status: Never smoker alcohol intake: never ROS ROS ED ROS Narrative PEG tube issue as in HPI patient's has no other complaints. EXAM Physical Exam Narrative Exam Narrative: Physical exam General: Patient does not appear in any distress Head: Normocephalic, Atraumatic Eyes: Conjunctiva not pale ENT: Moist mucous membranes, I do not see any signs of dehydration Neck: Supple, Nontender, No lymphadenopathy Cardiovascular: Normal distal pulses Respiratory: No distress Abdomen: Soft, Nontender, Nondistended, the PEG tube site is clean dry and intact. The PEG ports flushed quite well without any difficulty. Back: Nontender, Normal Inspection. Negative for: CVA tenderness Const Vital Signs: 08/02/22 20:41 Temperature 97.0 F L Temperature Source Temporal Pulse Rate 80 Respiratory Rate 15 Blood Pressure 114/77 Blood Pressure Mean 89 Pulse Ox 95 Oxygen Delivery Method Room Air MDM MDM MDM Narrative Medical decision making narrative: We were able to find a clamp it did not fit quite well but the patient's said he will make it work. Apparently told the nurse that he may cut the tube at home a encouraged him not to do so. Otherwise I will discharge in stable condition Discharge Plan Triage Chief Complaint: Wound Check ED Provider: Domingo Snow Dx/Rx/DC Orders Clinical Impression: PEG tube malfunction, Visit for wound check Instructions: ED Wound Check (No Infection) Prescriptions: No Action aspirin 81 mg tablet,delayed release (DR/EC) 81 mg feeding tube DAILY trazodone 50 mg tablet 50 mg PO QHS PRN (Reason: Sleep) riluzole 50 mg tablet 50 mg PO Q12H Rx Instructions: must be taken on empty stomach; no food 1 hr after or 2-3 hrs before dose duloxetine 60 mg capsule,delayed release(DR/EC) 60 mg PO DAILY glycopyrrolate 1 mg tablet 2 mg feeding tube TID baclofen 5 mg tablet 10 mg feeding tube DAILY acidophilus-pectin, citrus 1 TABLET tablet 1 tab feeding tube DAILY multivitamin with folic acid 1 TABLET tablet 1 tab PO DAILY scopolamine base 1 mg over 3 days patch 3 day 1 patch topical Q3D PRN (Reason: Nausea) acetaminophen [Tylenol] 325 mg Capsule 650 mg feeding tube Q6H PRN (Reason: Pain) meloxicam 7.5 mg Tablet 10 mg PO DAILY nadolol [Corgard] 20 mg Tablet 10 mg PO DAILY levocetirizine 5 mg Tablet 5 mg feeding tube QHS omeprazole 20 mg capsule,delayed release(DR/EC) 20 mg PO DAILY Label Comments: TAKE 1 CAPSULE BY MOUTH ONCE DAILY FOR GASTROESOPHAGEAL REFLUX. DO NOT CHEW OR CRUSH, SWALLOW WHOLE Primary Care Provider: Elissa Alanis Referrals: Elissa Alanis MD [Primary Care Provider] - 3-5 Days Disposition Disposition: Home, Self Care
--- NOTE | 2022-08-02 21:29 | ED.RN ---
Per spouse patient had peg tube replaced today by Dr Mae and it does not have a clamp on it. Pt has had one with a clamp on it for several years and with this new one when she opens it everything comes spewing out. This RN educates patient and family at length that this type of peg tube does not have a clamp on them. Explained that because its so new we will not replace it if its working, this RN demonstrates how to use it for meds and feeding by bending it with your fingers to clamp it off while attaching and detaching syringe. This RN obtained a clamp from OR/ENDO and attemps to place it on existing tube unsuccessfully. Spouse requests extra clamp to take home. Was given one to take home. Spouse and patient agreeable to go home after this education with follow up with Dr Mae.
[2022-08-02 21:46] VITALS: BP 134/87; PULSE 69; RESP 15; O2SAT 95
== END 2022-08-02 21:46 | disposition home or self-care (01) ==
PROVIDERS: Emergency Provider Emergency Medicine; PCP Family Medicine; Visit Provider Emergency Medicine
DX: K94.23 Gastrostomy malfunction (principal)
CPT/HCPCS: 99282

== ENCOUNTER 2022-08-03 15:07 | Emergency (ER) | payer MEDICARE, OTHER, SELFPAY ==
[2022-08-03 15:09] VITALS: BP 104/74; PULSE 81; RESP 18; TEMP 36.6; O2SAT 95
[2022-08-03 15:23] VITALS: BMI 26.3
--- NOTE | 2022-08-03 15:34 | EX.ED.DYSGE1 ---
HPI History of Present Illness Chief Complaint: Wound Narrative Narrative: 67-year-old female past medical history of ALS presents with her for PEG tube malfunction/problem. She is nonverbal from her ALS. states that PEG tube was changed [address] Mae. She has had her PEG tube for at least a year and a half. He was seen in the emergency department last night because he wanted the clamp on the PEG tube because he states whenever he administers medication or flushes the tube, when he removes a syringe things spray all over. About an hour ago, he states that her PEG tube just fell out when she was getting out of the shower. He presents here for reinsertion of PEG tube, however he wants a clamp on it. [facility] Medical History ALS (amyotrophic lateral sclerosis) Anxiety Arthritis Arthritis BiPAP (biphasic positive airway pressure) dependence Cellulitis Chronic neck and back pain Depression Difficulty chewing Difficulty swallowing Hemorrhoids History of cellulitis History of stress test HTN (hypertension) Knee pain Limb weakness Long-term use of high-risk medication Non-smoker Pure hypercholesterolemia Severe headache Shoulder pain Sinus tachycardia Sleep apnea SOB (shortness of breath) Uses wheelchair Wears glasses Wears hearing aid Home Medications acidophilus 25 million cell-pectin, citrus 100 mg tablet 1 tab feeding tube DAILY 06/11/13 [History Last Taken Unknown] multivitamin with folic acid 400 mcg tablet 1 tab PO DAILY 06/11/13 [History Last Taken Unknown] aspirin 81 mg tablet,delayed release 81 mg feeding tube DAILY 07/12/19 [History Last Taken Unknown] trazodone 50 mg tablet 50 mg PO QHS PRN Sleep 07/12/19 [History Last Taken Unknown] riluzole 50 mg tablet 50 mg PO Q12H 08/19/20 [History Last Taken Unknown] duloxetine 60 mg capsule,delayed release 60 mg PO DAILY 10/14/20 [History Last Taken 08/02/22] glycopyrrolate 1 mg tablet 2 mg feeding tube TID 10/14/20 [History Last Taken Unknown] scopolamine base 1 mg over 3 days transdermal patch 1 patch topical Q3D PRN Nausea 01/11/22 [History Last Taken Unknown] baclofen 5 mg tablet 10 mg feeding tube DAILY 07/12/22 [History Last Taken 08/02/22] acetaminophen 325 mg capsule (Tylenol) 650 mg feeding tube Q6H PRN Pain 07/25/22 [History Last Taken Unknown] levocetirizine 5 mg tablet 5 mg feeding tube QHS 07/25/22 [History Last Taken Unknown] meloxicam 7.5 mg tablet 10 mg PO DAILY 07/25/22 [History Last Taken Unknown] nadolol 20 mg tablet (Corgard) 10 mg PO DAILY 07/25/22 [History Last Taken 08/02/22] omeprazole 20 mg capsule,delayed release 20 mg PO DAILY 08/02/22 [History Last Taken 08/02/22] Allergy/AdvReac Type Severity Reaction Status Date / Time lisinopril AdvReac cough Verified 08/03/22 15:11 Family History Other Colon cancer High triglycerides Surgical History H/O thumb surgery H/O total hysterectomy History of bunionectomy of both great toes S/P percutaneous endoscopic gastrostomy (PEG) tube placement Social History Smoking Status: Never smoker alcohol intake: never ROS ROS ED ROS Narrative Unable to obtain from patient secondary to being nonverbal. Review of Systems ROS Unobtainable: other Details: Patient nonverbal. EXAM Physical Exam Narrative Exam Narrative: Afebrile. Vital signs noted. HEENT: Normocephalic. Atraumatic. PERRL, EOMI. Neck soft and supple. No point tenderness or step off. Cardiovascular: Regular rate and rhythm. No murmurs, rubs, or gallops appreciated. Respiratory: No tachypnea. Lungs clear to auscultation bilaterally. Gastrointestinal: Abdomen soft, nontender, with normoactive bowel sounds. Positive PEG tube orifice without erythema or drainage. No rebound or guarding. Neurological: Awake. Alert. Nonfocal, nonlateralizing. Patient nonverbal at baseline. Skin: No rash. Normal color. No pallor. Musculoskeletal: No pedal edema. Full range of motion extremities. Const Vital Signs: 08/03/22 15:09 Temperature 97.8 F Temperature Source Temporal Pulse Rate 81 Respiratory Rate 18 Blood Pressure 104/74 Blood Pressure Mean 84 Pulse Ox 95 Oxygen Delivery Method Room Air MDM MDM MDM Narrative Medical decision making narrative: Initial attempt was made to put the clamp that the patient's brought with him onto the G-tube. However, the rubber piece that holds the tube in place against the skin had to be removed as it will not fit over the ports, and it could not be forced through the rubber piece. When I asked him how they got the clamp on the tube when it was in place last night, he states they had to split it.. He did not bring the splint clamp with him. I explained to him that he cannot cut the piece off where the port is because that would either deflate the balloon or prevent anyone from deflating the balloon in the future. The balloon was damaged on the initial G-tube, so different G-tube was obtained. It will be placed without a clamp, and he will have to use the splint clamp if he wants a clamp placed on it. G-tube was inserted without difficulty. I obtained Gastrografin KUB and interpreted it myself. I see no extravasation of fluid. I reviewed the radiology report which shows the percutaneous enteric tube projecting over the left upper quadrant with contrast filling multiple small bowel loops. At this point in time, I feel she can be discharged safely home with follow-up to gastroenterology as needed. Return instructions to the emergency department were reviewed with her . Disposition is discharged home in stable condition. Radiography Diagnostic Testing: Clinical Impression(s) from Imaging Studies KUB X-Ray 08/03/22 16:25 IMPRESSION: Percutaneous enteric tube projects over the left upper quadrant with contrast filling multiple small bowel loops. Electronically Signed: Domingo Tolbert MD at 16:46 EST , Discharge Plan Triage Chief Complaint: Wound ED Provider: Aguilar Murray Dx/Rx/DC Orders Clinical Impression: PEG tube malfunction, ALS (amyotrophic lateral sclerosis) Instructions: ED Feeding Tube Replacement ... Prescriptions: No Action aspirin 81 mg tablet,delayed release (DR/EC) 81 mg feeding tube DAILY trazodone 50 mg tablet 50 mg PO QHS PRN (Reason: Sleep) riluzole 50 mg tablet 50 mg PO Q12H Rx Instructions: must be taken on empty stomach; no food 1 hr after or 2-3 hrs before dose duloxetine 60 mg capsule,delayed release(DR/EC) 60 mg PO DAILY glycopyrrolate 1 mg tablet 2 mg feeding tube TID baclofen 5 mg tablet 10 mg feeding tube DAILY acidophilus-pectin, citrus 1 TABLET tablet 1 tab feeding tube DAILY multivitamin with folic acid 1 TABLET tablet 1 tab PO DAILY scopolamine base 1 mg over 3 days patch 3 day 1 patch topical Q3D PRN (Reason: Nausea) acetaminophen [Tylenol] 325 mg Capsule 650 mg feeding tube Q6H PRN (Reason: Pain) meloxicam 7.5 mg Tablet 10 mg PO DAILY nadolol [Corgard] 20 mg Tablet 10 mg PO DAILY levocetirizine 5 mg Tablet 5 mg feeding tube QHS omeprazole 20 mg capsule,delayed release(DR/EC) 20 mg PO DAILY Label Comments: TAKE 1 CAPSULE BY MOUTH ONCE DAILY FOR GASTROESOPHAGEAL REFLUX. DO NOT CHEW OR CRUSH, SWALLOW WHOLE Primary Care Provider: Elissa Alanis Referrals: Elissa Alanis MD [Primary Care Provider] - As soon as possible Friend,DO Diony [Med Staff - Active Staff] - As Needed Disposition Disposition: Home, Self Care
--- NOTE | 2022-08-03 16:25 | RAD_ITS ---
INDICATION: G tube placement -- With Gastrografin EXAMINATION/TECHNIQUE: X-RAY - XR Abdomen 1 View COMPARISON: 12/20/2022 CT RAD/Abdomen Single View (Portable) IMPRESSION: Percutaneous enteric tube projects over the left upper quadrant with contrast filling multiple small bowel loops. Electronically Signed: Domingo Tolbert MD at 16:46 EST ,
--- NOTE | 2022-08-03 17:06 | ED.RN ---
pEG TUBE FLUSEHD WITH 60CC. TOLERATED WELL.
== END 2022-08-03 17:22 | disposition home or self-care (01) ==
PROVIDERS: Emergency Provider Emergency Medicine; PCP Family Medicine; Visit Provider Emergency Medicine
DX: K94.23 Gastrostomy malfunction (principal); G12.21 Amyotrophic lateral sclerosis; G47.30 Sleep apnea, unspecified
CPT/HCPCS: 74018; 99282; A4216